=== PATIENT | female | born 1995 | race Asian ===

== ENCOUNTER 2018-11-20 07:33 | Day surgery (SDC) | payer OTHER, SELFPAY ==
[2018-11-20] VITALS (9 sets, daily range): BP systolic 82–103; BP diastolic 50–70; PULSE 63–78; RESP 12–16; TEMP 36.4–36.6; O2SAT 99–100; BMI 22.8
--- NOTE | 2018-11-20 | PATH_ITS ---
[facility] Accession Number: [id number] . 01 Material submitted: . gastrointestinal site - GASTRIC BIOPSIES . 02 Diagnosis: Stomach, Biopsies: Gastric antral and body mucosa with mild chronic gastritis. Negative for Helicobacter organisms by immunohistochemistry. Negative for intestinal metaplasia, dysplasia or malignancy. V/11/22/2018 . 02 Electronically signed: . Harman Ovalle MD, PhD, Pathologist NPI- [id number] . 01 Gross description: . GASTRIC BIOPSIES: Received in formalin are 2 fragment(s) of fox, soft tissue measuring 0.1 x 0.1 x 0.1 cm to 0.2 x 0.1 x 0.1 cm which is entirely submitted and submitted entirely in 1 cassette(s) /DMC /DMC . 02 Microscopic: . An immunohistochemical stain is performed to evaluate for Helicobacter organisms and is negative. A control stain shows appropriate reactivity. . * This test was developed and its performance characteristics determined by [facility]. It has not been cleared or approved by the U.S. Food and Drug Administration. The FDA has determined that such clearance or approval is not necessary. This test is used for clinical purposes. It should not be regarded as investigational or for research. . 02 Pathologist provided ICD-10: K29.70 . 02 CPT . 829018, [id number] Performed at: 01 [facility] [address], [place], [place] [id number] MD Jose Armando Logan MD Phone: [phone] Performed at: 02 [facility] [address] [place], [place] [id number] MD Serena Armas MD Phone: [phone]
[2018-11-20] MEDS: SODIUM CHLORIDE 0.9% 1,000 ML 150 ML IV (09:04)
--- NOTE | 2018-11-20 09:28 | PM.HP.1 ---
History of Present Illness Chief complaint: [id number] COLONOSCOPY/EGD Patient History Social History household members: spouse Smoking Status: Never smoker Family & Social History Social History: household members spouse Tobacco & Substance use: Smoking Status Never smoker Meds Home Medications Medication Instructions Recorded Confirmed Type loratadine 10 mg tablet 10 mg PO DAILY 04/23/18 11/20/18 History sertraline 25 mg tablet 25 mg PO DAILY 05/03/18 11/20/18 History omeprazole magnesium [Prilosec OTC] 20 mg PO DAILY 11/20/18 11/20/18 History Allergies Allergy/AdvReac Type Severity Reaction Status Date / Time No Known Drug Allergies Allergy Verified 11/20/18 08:11 Review of Systems Review of Systems All systems reviewed & are unremarkable except as noted in HPI and below Exam Vital Signs (past 8 hours): - 11/20/18 08:14 Temperature 97.7 F Pulse Rate 78 Respiratory Rate 15 Blood Pressure 98/66 Pulse Oximetry 100 Oxygen Delivery Method Room Air Narrative Exam Narrative: Awake alert oriented x3, pupils equal round reactive to light, lungs clear, heart regular rate and rhythm, abdomen soft nontender nondistended, no lower extremity edema Assessment & Plan Assessment & Plan narrative: Dyspepsia and change in bowel habits, EGD and colonoscopy
--- NOTE | 2018-11-20 09:48 | PM.OP.ENDO ---
Operative Date/Time/Diagnoses Date of procedure: 11/20/18 Procedure & Clinicians Study performed: EGD with biopsy Moderate conscious sedation was administered by the endoscopy nurse and supervised by the endoscopist. The following parameters were monitored: Oxygen saturation, heart rate, blood pressure, and response to care. Sedation: 6 mg midazolam, 100 mcg fentanyl Indications: Dyspepsia Procedure Notes Procedure in detail: Prior to the procedure, history and physical was performed, and patient medications and allergies were reviewed. Preprocedure nursing history and assessment was reviewed. Patient identification and proposed procedure were verified by the physician and nurse in the procedure room. The physical status of the patient was reassessed after the procedure. After informed consent was obtained including risks, benefits, and alternatives, the scope was passed under direct vision. Throughout the procedure, the patient's blood pressure, pulse, and oxygen saturations were monitored continuously. The upper endoscope was introduced through the mouth and advanced to the 2nd portion of the duodenum. Retroflexion was performed in the stomach. The patient tolerated the procedure well. The entire esophagus was normal-appearing. The Z-line was regular and located at 39 cm. The entire examined stomach was normal appearing. Biopsies were taken to exclude H pylori. The entire examined duodenum was normal appearing. Impression: Normal appearing esophagus and Z-line Normal appearing stomach. Biopsied Normal appearing duodenum Complications: other (EBL minimal. No complications) Plan for aftercare: Follow-up pathology results Proceed with colonoscopy today Follow-up in GI clinic as previously scheduled
[2018-11-20] MEDS: MIDAZOLAM 5 MG/5 ML VIAL IV (09:58)
[2018-11-20] MEDS: fentaNYL 250 MCG/5 ML INJ IV (09:59)
--- NOTE | 2018-11-20 10:10 | P.OP.ENDO_ITS ---
Operative Date/Time/Diagnoses Date of procedure: 11/20/18 Procedure & Clinicians Study performed: Colonoscopy - diagnostic Moderate conscious sedation was administered by the endoscopy nurse and supervised by the endoscopist. The following parameters were monitored: Oxygen saturation, heart rate, blood pressure, and response to care. Sedation: 1 mg midazolam. Plus medications given during EGD Indications: Change in bowel habits, constipation Procedure Notes Procedure in detail: Prior to the procedure, history and physical was performed, and patient medications and allergies were reviewed. Preprocedure nursing history and assessment was reviewed. Patient identification and proposed procedure were verified by the physician and nurse in the procedure room. The physical status of the patient was reassessed after the procedure. After informed consent was obtained including risks, benefits, and alternatives, the scope was passed under direct vision. Throughout the procedure, the patient's blood pressure, pulse, and oxygen saturations were monitored continuously. The colonoscope was introduced through the anus and advanced to the cecum as identif ied by the appendiceal orifice and ileocecal valve. The patient tolerated the procedure well. Bowel prep was deemed adequate to detect polyps greater than 5 mm. Perianal and digital rectal examinations were unremarkable. Retroflexion in the rectum was unrevealing. The entire examined colon was normal appearing. The terminal ileum was normal appearing. Impression: Normal colon Normal terminal ileum Sedation minutes: 30 Complications: other (EBL none. No complications) Plan for aftercare: Resume home medications Resume previous diet Follow-up in GI clinic as previously scheduled Discharged home with escort
--- NOTE | 2018-11-20 10:46 | SUR.PHASEII ---
Pt drowsy, family at bedside. Call light within reach. Water provided.
--- NOTE | 2018-11-20 11:10 | SUR.PHASEII ---
Pt's spouse expressed desire to d/c. Pt sat up and c/o feeling lightheaded. Encouraged to rest a while longer. Pt agreed. Call light within reach.
--- NOTE | 2018-11-20 11:22 | SUR.PHASEII ---
Pt sitting up using cellphone. IV d/c'd.
== END 2018-11-20 11:20 | disposition home or self-care (01) ==
PROVIDERS: PCP Nurse Practitioner Gerontology; Visit Provider Internal Medicine
PROC: 0DJ08ZZ Inspection of Upper Intestinal Tract, Via Natural or Artificial Opening Endoscopic (ICD-10-PCS; CPT 43235; principal; 2018-11-20 09:00)
PROC: 0DJD8ZZ Inspection of Lower Intestinal Tract, Via Natural or Artificial Opening Endoscopic (ICD-10-PCS; CPT 45378; 2018-11-20 09:00)
DX: K29.70 Gastritis, unspecified, without bleeding (principal); R19.7 Diarrhea, unspecified; R10.9 Unspecified abdominal pain; K59.00 Constipation, unspecified
CPT/HCPCS: 43239; 45378; J2250; J3010

== ENCOUNTER → 2019-06-26 16:49 | Outpatient (CLI) | payer OTHER, SELFPAY | PROVIDERS: PCP Nurse Practitioner Gerontology; Visit Provider Obstetrics & Gynecology | DX: Z34.02 Encounter for supervision of normal first pregnancy, second trimester (principal); Z3A.17 17 weeks gestation of pregnancy | CPT/HCPCS: 87086 ==

== ENCOUNTER → 2019-06-26 16:58 | Outpatient (CLI) | payer OTHER, SELFPAY ==
[2019-06-26 18:08] LABS: Add Manual Diff / Slide Review NO; Basophils Absolute Auto 0 /uL (0-100); Basophils Percent Auto 0.6 % (0-2); Eosinophils Absolute Auto 100 /uL (0-450); Eosinophils Percent Auto 1.7 % (2-4); Hematocrit 35.8 % (36-46); Hemoglobin 12.1 g/dL (12.0-16.0); Lymphocytes Absolute Auto 1900 /uL (1100-4500); Mean Corpuscular HGB Conc 33.7 % (30-36); Mean Corpuscular Hemoglobin 31.3 PG (26-34); Mean Corpuscular Volume 92.7 fL (80-100); Monocytes Absolute Auto 400 /uL (0-900); Neutrophils Absolute Auto 3500 /uL (1500-7000); Neutrophils Percent Auto 59.7 % (50-75); Platelet Count 215 X10^3/uL (150-400); Red Blood Cell Count 3.86 X10^6/uL (4.0-5.2); Red Cell Distribution Width 13.4 % (11.6-14.8); White Blood Cell Count 5.9 X10^3/uL (4.5-11.0)
[2019-06-26 18:22] LABS: Appearance Urine UA CLEAR; Bilirubin Urine UA NEGATIVE (NEGATIVE); Color Urine UA YELLOW; Glucose Urine UA NEGATIVE (Negative); Ketones Urine UA NEGATIVE (NEGATIVE); Leukocyte Esterase Urine UA NEGATIVE (NEGATIVE); Nitrite Urine UA NEGATIVE (Negative); Occult Blood Urine UA NEGATIVE (Negative); Protein Urine UA NEGATIVE (Negative); Specific Gravity Urine UA <=1.005 (1.000-1.035); Urobilinogen Urine UA 0.2 E.U./dL (0.2)
[2019-06-26 18:24] LABS: pH Urine UA 6.5 (4.5-8.0)
[2019-06-26 19:03] LABS: Hepatitis B Surface Antigen NEGATIVE s/c (NEGATIVE)
[2019-06-26 19:19] LABS: HIV 1 & 2 Ab/Ag 4th Gen Combo NEGATIVE (NEGATIVE); Hep C Virus Ab w/Reflex Quant NEGATIVE s/c (NEGATIVE)
[2019-06-29 20:01] LABS: RPR Screen Nonreactive (Nonreactive)
[2019-07-02 16:35] LABS: AFP, Serum 62.4 ng/mL; Calc Gestational Age 17; Est Date Determined by ULTRASOUND; Maternal Weight 129 lbs; Number of Fetuses 1; Prev Pregnancies Down Syndrome NO
== END ==
PROVIDERS: Family Provider Nurse Practitioner Gerontology; PCP Nurse Practitioner Gerontology; Visit Provider Obstetrics & Gynecology
DX: Z34.02 Encounter for supervision of normal first pregnancy, second trimester (principal); Z3A.17 17 weeks gestation of pregnancy
CPT/HCPCS: 36415; 80055; 81003; 82105; 86787; 86803; 86850; 86900; 86901; 87086; 87389

== ENCOUNTER → 2019-07-23 16:11 | Outpatient (CLI) | payer OTHER, SELFPAY | PROVIDERS: Family Provider Nurse Practitioner Gerontology; PCP Nurse Practitioner Gerontology; Visit Provider Specialist | DX: B08.4 Enteroviral vesicular stomatitis with exanthem (principal) | CPT/HCPCS: 36415 ==

== ENCOUNTER → 2019-08-27 08:24 | Outpatient (CLI) | payer OTHER, SELFPAY ==
[2019-08-27 10:15] LABS: Hematocrit 35.9 % (36-46); Hemoglobin 12.2 g/dL (12.0-16.0)
[2019-08-27 10:35] LABS: GTT (PREG) 1 Hour PP 50gm Dose 110 mg/dL (76-139)
== END ==
PROVIDERS: Family Provider Nurse Practitioner Gerontology; PCP Nurse Practitioner Gerontology; Referring Provider Specialist; Visit Provider Specialist
DX: Z34.02 Encounter for supervision of normal first pregnancy, second trimester (principal)
CPT/HCPCS: 36415; 82950; 85014; 85018

== ENCOUNTER → 2019-11-12 11:28 | Outpatient (CLI) | payer OTHER, SELFPAY ==
[2019-11-13 10:53] LABS: Strep Grp B PCR NEG for Grp B Strep
== END ==
PROVIDERS: Family Provider Nurse Practitioner Gerontology; PCP Nurse Practitioner Gerontology; Visit Provider Specialist
DX: Z34.03 Encounter for supervision of normal first pregnancy, third trimester (principal)
CPT/HCPCS: 87653

== ENCOUNTER 2019-12-03 04:39 | Inpatient (IN) | payer OTHER, SELFPAY ==
[2019-12-03] MEDS: LACTATED RINGERS 1,000 ML 100 ML IV (08:19)
--- NOTE | 2019-12-03 08:31 | PM.OBHP.1 ---
OB HPI Date/Time Date of admission: 12/03/19 Date Patient Seen: 12/03/19 Time Patient Seen: 08:00 History of Present Condition Chief complaint: Evaluation of Labor : 1 Para: 0 Estimated Date of Delivery: 12/04/19 Estimated Gestational Age (weeks): 39 Narrative: Dara Waddell is a 24 year old female admitted in active labor History of Present care: good care, initiated at week # (9), number of visits (9) and pounds weight gain (25) Dating criteria: based on 1st trimester US only Ultrasounds: normal mid trimester US Obstetrical complications: none Medical complications: none Preadmission Labs Blood type: B (+) positive -: Antibody screen: negative, GBS status: negative, HBsAG: negative, HIV: negative and RPR/VDLR: negative -: Chlamydia screen: not detected and Gonorrhea screen: not detected -: Rubella: immune and Varicella: immune HCAB: negative Cell-free DNA: Normal male 1 hr GTT: 110 Evaluation Evaluation Baseline heart rate: 140 Variability: Moderate (11-25) monitor accelerations: Present monitor decelerations: Absent Contraction Frequency (minutes): 4 Uterine Contraction Intensity: Strong/Firm Category of Tracing: I Cervical dilation (cm): 4 Cervical effacement (%): 100 station: 0 PFSH Medical History (Updated 05/06/19 @ 15:28 by Susan Travis RN) Abnormal Pap smear of cervix (Acute) Anxiety (Acute) Asthma (Acute) Depression (Acute) Seasonal allergies (Acute) Family History (Updated 05/06/19 @ 15:32 by Susan Travis RN) Mother Hypertension UTI (urinary tract infection) Grandmother Hypertension Grandfather Hypertension Family/Other Cancer Social History marital status: household members: spouse education level: college (14 years ) occupational status: employed ([employer] ) current occupational exposures/hazards: No leisure activities: exercise Smoking Status: Never smoker substance use type: does not use Type(s) of exercise: walking frequency: 1-2 times per week Meds Home Medications and Allergies Home Medications Medication Instructions Recorded Confirmed Type prenat.vits,ioana,hdl-xcvs-cxjiw 1 tab PO DAILY 05/05/19 11/28/19 History docusate calcium PO 05/06/19 11/28/19 History doxylamine succinate 25 mg tablet 25 mg PO BEDTIME PRN 05/22/19 11/28/19 History pyridoxine (vitamin B6) 25 mg 25 mg PO DAILY 05/22/19 11/28/19 History tablet sertraline 25 mg tablet 25 mg PO DAILY #90 tab 09/08/19 11/28/19 Rx Double Electric breast Pump and #1 each 11/26/19 11/28/19 Rx Supplies Allergies Allergy/AdvReac Type Severity Reaction Status Date / Time sulfamethoxazole Allergy Hives Verified 10/29/19 10:35 [From Bactrim] trimethoprim [From Bactrim] Allergy Hives Verified 10/29/19 10:35 Review of Systems Review of Systems Narrative: Patient denies headaches, scotomata, epigastric pain. She has had good movement. No leakage of fluid. Regular painful contractions ROS: Yes All systems reviewed with the patient and are negative except as otherwise documented Exam Vital Signs (past 8 hours): Blood pressure 104/65, pulse of 82, temperature 36.4? Narrative Exam Narrative: HEENT exam within normal limits. Lungs are clear to auscultation percussion. Heart is regular rate and rhythm no S3-S4 or murmurs. Fetus is vertex. Extremities without edema and nontender. Assessment and Plan Assessment and Plan Assessment and Plan narrative: Term in early labor. Anticipate vaginal delivery.
[2019-12-03 08:55] LABS: Add Manual Diff / Slide Review NO; Basophils Absolute Auto 0 /uL (0-100); Basophils Percent Auto 0.3 % (0-2); Eosinophils Absolute Auto 100 /uL (0-450); Hematocrit 35.6 % (36-46); Lymphocytes Absolute Auto 2300 /uL (1100-4500); Lymphocytes Percent Auto 22.9 % (25-40); Mean Corpuscular HGB Conc 33.6 % (30-36); Mean Corpuscular Volume 89.4 fL (80-100); Monocytes Absolute Auto 800 /uL (0-900); Neutrophils Absolute Auto 6800 /uL (1500-7000); Neutrophils Percent Auto 67.8 % (50-75); Platelet Count 215 X10^3/uL (150-400); Red Blood Cell Count 3.98 X10^6/uL (4.0-5.2); Red Cell Distribution Width 13.7 % (11.6-14.8)
[2019-12-03 10:14] VITALS: BP 108/75
[2019-12-03 11:41] LABS: COVID19 -Nasal RAPID Negative (Negative)
[2019-12-03] MEDS: FENT 2MCG/ML BUPIV 0.125% EPI 200 MCG/100 ML PLAST..BAG 6 MCG EPIDURAL (11:50)
--- NOTE | 2019-12-03 12:02 | PM.AN.REGBLK ---
Regional Block Pre-procedure Procedure: Continuous Lumbar Epidural for L&D Attending OB provider: Jayda Martinez PMH/ROS narrative: term labor, no complications. PMH: exercise induced asthma as a youth. No Rx. Depression/anxiety well controlled with sertraline. Hx: No personal or family history of anesthesia problems. ASA Class: II Labs: Hct 35.6 % (36-46) L 12/03/19 07:58 Plt Count 215 X10^3/uL (150-400) 12/03/19 07:58 Medications: Current Medications Generic Name Dose Route Start Last Admin Trade Name Freq PRN Reason Stop Dose Admin Calcium Carbonate 1,000 mg 12/03/19 07:42 Tums PO Q2HR PRN Dyspepsia Diphenhydramine HCl 25 mg 12/03/19 11:33 Benadryl IV Q10M PRN Pruritis Fentanyl 100 mcg 12/03/19 07:42 Sublimaze IV Q1H PRN Pain, Severe (7-10) Lactated Ringer's 1,000 mls @ 100 mls/hr 12/03/19 07:45 12/03/19 08:19 Lactated Ringers IV 100 mls/hr CONT REDD Administration FENT 2MCG/ML BUPIV 0.125% EPI 200 mcg in 100 mls @ 6 mls/hr 12/03/19 11:45 Fentanyl/Bupiv/Ns 2mcg/Ml - 0.125% EPIDURAL CONT REDD Naloxone HCl 0.2 mg 12/03/19 07:42 Narcan IV Q2MIN PRN Opiate Reversal Ondansetron HCl 4 mg 12/03/19 07:42 Zofran IV Q4HR PRN Nausea And Vomiting Allergies: Allergies Allergy/AdvReac Type Severity Reaction Status Date / Time sulfamethoxazole Allergy Hives Verified 10/29/19 10:35 [From Bactrim] trimethoprim [From Bactrim] Allergy Hives Verified 10/29/19 10:35 Procedure Insertion date: 12/03/19 Insertion time: 11:47 Prep/Local: betadine x3 Patient position: sitting Needle: 18 gauge Hustead (27g Pencan through Hustead for CSE, 0.5mL 0.25% bupiv spinal dose) Loss of resistance with: saline JAYCOB at (cm): 4 Catheter placed at SKIN (cm): 9 Catheter in SPACE (cm): 5 Insertion: No CSF, No Blood, No Paresthesia with insertion, No Paresthesia with injection and No Test dose reaction Initial Medications TEST DOSE time: 11:48 TEST DOSE: 1.5% lidocaine with epinephrine 1:200k (mL): 3 BOLUS DOSE time: 11:59 BOLUS DOSE (mL): 3 BOLUS DOSE med: 0.125% bupivacaine with fentanyl 10 mcg/mL Infusion INFUSION: 0.125% bupivacaine and with fentanyl 2 mcg/mL Initial rate (mL/hr): 6 Post-procedure Anesthesia time START: 11:36 Anesthesia time END: 19:37 Post-procedure Anesthesia Assessment: Yes CV function: HR/BP stable, Yes Resp function: RR/sat/airway adequate, Yes Post-op hydration adequate, Yes Pain control adequate, Yes Nausea & vomiting absent, Yes Mental status appropriate and No Anesthesia complications
[2019-12-03] MEDS: OXYTOCIN PREMIX 30 UNIT/500 ML PLAST..BAG IV (13:32)
[2019-12-03] MEDS: ONDANSETRON 4 MG/2 ML INJ IV (17:03)
--- NOTE | 2019-12-03 20:13 | PM.OBPRVD ---
Labor & Delivery Delivery date: 12/03/19 Intrapartal events: None Delivery augmentation: pitocin Delivery monitor: external FHT and external uterine L&D Laceration Description: Periurethral - 1st Degree and Perineal - 2nd Degree Delivery repair: chromic (3 0 and 4 0) Estimated blood loss (mL): 450 Anesthesia type: Epidural Narrative: Patient arrived on Labor and delivery in active labor. She received an epidural catheter for pain control. heart tones category 1 to category 2 throughout labor. Patient delivered spontaneously, over an intact perineum. The viable male infant was placed on maternal abdomen. After the cord stopped pulsating the cord was clamped, cut, and cord bloods obtained. There were no cervical tears. A second-degree perineal tear was repaired with 3 0 chromic suture in the usual 2 layer fashion. Labial minora tears were repaired bilaterally. Estimated blood loss 450 cc. Baby and mother doing well. Baby 1: Infant gender: Male Presentation: vertex position: Right Occiput Posterior Placenta delivery description: Spontaneous cord vessel description: 3 Vessels score (1 min): 8 score (5 min): 9 Plan for aftercare: Routine care
[2019-12-03] MEDS: IBUPROFEN 600 MG TABLET PO (21:00)
[2019-12-04] MEDS: IBUPROFEN 600 MG TABLET PO ×3 (02:50→15:45)
[2019-12-04] MEDS: DERMOPLAST SPRAY 20% 60 ML 1 SPRAY TOP (08:09)
[2019-12-04] MEDS: DOCUSATE 100 MG CAPSULE PO (08:10)
[2019-12-04 08:11] LABS: Hematocrit 29.4 % (36-46); Hemoglobin 9.9 g/dL (12.0-16.0)
[2019-12-04] MEDS: SERTRALINE 25 MG TABLET PO (09:09)
--- NOTE | 2019-12-04 10:26 | PM.OBDS.1 ---
Discharge Providers Provider Date of admission: 12/03/19 04:39 Discharge Date: 12/04/19 Primary care physician: JOHN Smith Consults: 12/03/19 07:42 Consult to Anesthesiology Urgent Comment: Consulting Provider: Anesthesiologist Reason for consultation: Epidural Has provider been notified: No 12/04/19 20:11 Consult to Quality Assurance Director Routine Comment: Discharge provider: Jayda Martinez MD Summary Hospital Course Date Patient Seen: 12/04/19 Time Patient Seen: 10:27 Procedures: Epidural catheter, spontaneous vaginal delivery, repair of second-degree tear Hospital Course: Patient arrived in Labor and delivery in active labor. She received an epidural catheter for pain control. She had Pitocin augmentation of labor. She had a spontaneous vaginal delivery with repair of a second-degree tear. She denies any headaches, scotomata, epigastric pain. She is urinating and ambulating well. Pain is under control. Peripartum Data Delivery Method: Natural Vaginal Laceration description: Perineal - 2nd Degree Procedures: Epidural catheter, Pitocin augmentation of labor, spontaneous vaginal delivery, repair of second-degree tear complications: none 1: Gender: Male Disposition of : home Discharge Diagnosis (1) Vaginal delivery: Status: Acute Status at Discharge Cognitive/behavioral status at discharge: oriented Functional status at discharge: independent ambulation Overall status at discharge: patient is progressing back to baseline Time Spent with Patient Time attestation: Total time spent providing and/or coordinating discharge services: Time spent: Less than 30 minutes Objective Labs Result Diagrams: 12/04/19 08:06 Labs: Laboratory Results - last 24 hr 12/03/19 12/04/19 07:45 08:06 Hgb 9.9 L Hct 29.4 L COVID-19 PCR Negative Exam Vital Signs (past 8 hours): Blood pressure 104/70, pulse of 90, temperature 98? Narrative Exam Narrative: Abdomen is soft, nontender. Uterus is firm, U -1, nontender. Mild lochia. Repair intact. Extremities without edema and nontender. Patient's blood type is B positive, she is rubella immune, she received the Tdap in the 3rd trimester. Discharge Plan Discharge Plan Patient Disposition: Home Discharge orders & Medications Prescriptions: Continued sertraline 25 mg tablet 25 mg PO DAILY Qty: 90 RF: 3 (DME) Double Electric breast Pump and Supplies See Rx Instructions .ROUTE .MEDSUPPLY Qty: 1 RF: 0 pyridoxine (vitamin B6) 25 mg tablet 25 mg PO DAILY RF: 0 Follow up/Referrals: Jayda Martinez MD [Physician] - 1 Month Serena Andujar ARNP [Primary Care Provider] - Diet/Activity/Treatments Diet: Regular Activity: Nothing in vagina for 4 weeks Skin/Wound/Dressing Care Report to your healthcare provider any signs of infection, such as:: chills, fever and increased pain Discharge Data Primary Care Provider: Serena Andujar Attending Provider: Jayda Martinez Admit Date/Time: 12/03/19 04:39
[2019-12-04] MEDS: LANOLIN OINT 7 GM 1 APPLIC TOP (13:38)
== END 2019-12-04 22:00 | disposition home or self-care (01) | DRG 807 ==
PROVIDERS: Admitting Provider Specialist; Family Provider Nurse Practitioner Gerontology; PCP Nurse Practitioner Gerontology; Referring Provider Specialist; Visit Provider Specialist
DX: O70.1 Second degree perineal laceration during delivery (principal); Z37.0 Single live birth; Z3A.39 39 weeks gestation of pregnancy
CPT/HCPCS: 01967; 36415; 59050; 59400; 85014; 85018; 85025; 86850; 86900; 86901; 87635; G0379; J2405; J2590

== ENCOUNTER 2021-02-13 13:06 | Emergency (ER) | payer OTHER, SELFPAY ==
[2021-02-13 13:12] VITALS: BP 119/75; PULSE 66; RESP 14; TEMP 36.1; O2SAT 99
[2021-02-13 13:38] LABS: COVID19 -Nasal RAPID Negative (Negative)
[2021-02-13 15:24] LABS: Add Manual Diff / Slide Review NO; Basophils Absolute Auto 0 /uL (0-100); Basophils Percent Auto 0.6 % (0-2); Eosinophils Absolute Auto 100 /uL (0-450); Eosinophils Percent Auto 2.5 % (2-4); Hematocrit 41.8 % (36-46); Hemoglobin 13.8 g/dL (12.0-16.0); Lymphocytes Absolute Auto 2100 /uL (1100-4500); Lymphocytes Percent Auto 43.6 % (25-40); Mean Corpuscular Hemoglobin 30.2 PG (26-34); Mean Corpuscular Volume 91.6 fL (80-100); Monocytes Absolute Auto 300 /uL (0-900); Monocytes Percent Auto 7.1 % (3-14); Neutrophils Absolute Auto 2200 /uL (1500-7000); Neutrophils Percent Auto 46.2 % (50-75); Platelet Count 216 X10^3/uL (150-400); Red Blood Cell Count 4.56 X10^6/uL (4.0-5.2); Red Cell Distribution Width 13.3 % (11.6-14.8); White Blood Cell Count 4.8 X10^3/uL (4.5-11.0)
[2021-02-13] MEDS: ONDANSETRON 4 MG/2 ML INJ IV (15:31)
[2021-02-13] MEDS: SODIUM CHLORIDE 0.9% 1,000 ML 1000 ML IV (15:31)
[2021-02-13 15:33] LABS: Alanine Aminotransferase 20 IU/L (<35); Albumin 4.2 g/dL (3.5-5.0); Albumin Globulin Ratio 1.2 (1.0-2.8); Alkaline Phosphatase 68 U/L (38-126); Aspartate Aminotransferase 29 IU/L (14-36); BUN Creatinine Ratio 14.6 (6-22); Bilirubin Total 0.3 mg/dL (0.2-1.3); Blood Urea Nitrogen 13 mg/dL (7-17); Calcium 9.5 mg/dL (8.4-10.2); Carbon Dioxide 29 mmol/L (22-32); Chloride 105 mmol/L (98-107); Estimated Glomerular Filt Rate > 60.0 mL/min (>60); Globulin 3.5 g/dL (1.7-4.1); Glucose 97 mg/dL (70-100); HEMOLYSIS 16 (0-50); Lipase 299 U/L (23-300); Potassium 3.8 mmol/L (3.4-5.1); Sodium 140 mmol/L (137-145); Total Protein 7.7 g/dL (6.3-8.2)
--- NOTE | 2021-02-13 15:38 | ED_ITS ---
HPI - Nausea/Vomiting/Diarrhea General Chief complaint: Nausea/Vomiting/Diarrhea Stated complaint: Can't eat. N/V/D, headache for 2 weeks Time Seen by Provider: 02/13/21 15:38 Source: patient Mode of arrival: Ambulatory Limitations: no limitations History of Present Illness HPI Narrative: This is a 25-year-old female comes with complaint of several days of nausea, diarrhea with 2 or 3 episodes of loose stool daily, muscle aches for the last several days and developing some headache today. Patient denies any fevers or chills. No cold cough or congestion that she is appreciated no chest pain or shortness of breath. She denies any abdominal pain. She has had some low back discomfort. She denies any dysuria, urgency or frequency. No vaginal bleeding or discharge. She has not any black or bloody stools but has had loose stools 2 or 3 times daily. Patient denies any rashes or skin changes. No known infectious contacts. She takes sertraline daily. She is allergic to Bactrim but denies any prior surgeries. No tobacco, rare alcohol, no illicit. Related Data Home Medications Medication Instructions Recorded Confirmed cetirizine 10 mg tablet (Zyrtec) 10 mg PO BEDTIME 02/13/21 02/13/21 sertraline 25 mg tablet 25 mg PO BEDTIME 02/13/21 02/13/21 Previous Rx's Medication Instructions Recorded cephalexin 500 mg capsule 500 mg PO BID #6 cap 02/13/21 ondansetron HCl 4 mg tablet 4 mg PO Q6H PRN #5 tab 02/13/21 (Zofran) Allergies Allergy/AdvReac Type Severity Reaction Status Date / Time sulfamethoxazole Allergy Hives Verified 02/13/21 17:25 [From Bactrim] trimethoprim [From Bactrim] Allergy Hives Verified 02/13/21 17:25 Review of Systems Review of Systems ROS Unobtainable: All systems reviewed & are unremarkable except as noted in HPI and below Patient History Medical History Abnormal Pap smear of cervix Anxiety Asthma Depression Seasonal allergies Family History (Updated 05/06/19 @ 15:32 by Susan Travis RN) Mother Hypertension UTI (urinary tract infection) Grandmother Hypertension Grandfather Hypertension Family/Other Cancer Social History marital status: household members: spouse education level: college (14 years ) occupational status: employed ([employer] ) current occupational exposures/hazards: No leisure activities: exercise Smoking Status: Never smoker substance use type: does not use Type(s) of exercise: walking frequency: 1-2 times per week Smoking Status: Never smoker alcohol intake frequency: 0-2 drinks per day Substance Use Type: does not use Exam Narrative Exam Narrative: GEN: well nourished, well appearing female, alert and oriented x 3, patient appears to be in mild distress. HEENT: Atraumatic, pupils are equal round reactive to light, no photophobia, extraocular movements are intact, nares are clear, TMs are clear with no fluid. Throat is clear without any exudates, erythema, tonsillar enlargement or uvular deviation, no meningeal signs. HEART: Regular rate and rhythm without murmur, clicks, rubs. Pulses are equal in upper and lower extremities LUNGS:Lungs clear to auscultation, no wheezes, rales, crackles, chest moves symmetrically ABD:bowel sounds normal, soft, non-tender, no guarding, rebound, rigidity, no masses noted, no hepatosplenomegaly :No CVA tenderness MSCL: Non-tender, no muscle atrophy, muscles strength 5/5 upper and lower extremities, full range of motion, normal gait NEURO:CN 2-12 intact, sensation normal SKIN: No rash, erythema or skin changes. Initial Vital Signs Initial Vital Signs: Vital Signs Temperature 97.0 F L 02/13/21 13:12 Pulse Rate 66 02/13/21 13:12 Respiratory Rate 14 02/13/21 13:12 Blood Pressure 119/75 02/13/21 13:12 Pulse Oximetry 99 02/13/21 13:12 Course Orders Ordered: ED Orders 02/13/21 13:20 COVID19 -Nasal swab/Pre-Proc Stat 02/13/21 15:15 Complete Blood Count AUTO DIFF Stat Comprehensive Metabolic Panel Stat Lipase Stat 02/13/21 16:29 Urinalysis and Microscopic Stat Discontinued Medications Cephalexin HCl (Cephalexin 250 Mg Capsule) 500 mg PO NOW ONE Stop: 02/13/21 17:04 Last Admin: 02/13/21 17:25 Dose: 500 mg Documented by: ANGIE Sodium Chloride (Normal Saline 0.9%) 1,000 mls @ 1,000 mls/hr IV BOLUS ONE Stop: 02/13/21 15:54 Last Infusion: 02/13/21 16:21 Dose: 0 mls/hr Documented by: Admin: 02/13/21 15:31 Dose: 1,000 mls/hr Documented by: BLAS Ketorolac Tromethamine (Ketorolac 30 Mg/Ml Vial) 15 mg IV NOW ONE Stop: 02/13/21 16:04 Last Admin: 02/13/21 16:27 Dose: 15 mg Documented by: ANGIE Ondansetron HCl (Ondansetron 4 Mg/2 Ml Inj) 4 mg IV NOW ONE Stop: 02/13/21 14:55 Last Admin: 02/13/21 15:31 Dose: 4 mg Documented by: BLAS Vital Signs Vital signs: Vital Signs - 8 hr 02/13/21 13:12 02/13/21 17:58 Temperature 97.0 F L Pulse Rate 66 62 Respiratory Rate 14 16 Blood Pressure 119/75 118/68 Pulse Oximetry 99 97 MDM - Nausea/Vomiting/Diarrhea Lab Data Result diagrams: 02/13/21 15:15 02/13/21 15:15 Labs: Lab Results 02/13/21 02/13/21 02/13/21 Range/Units 13:20 15:15 15:15 WBC 4.8 (4.5-11.0) X10^3/uL RBC 4.56 (4.0-5.2) X10^6/uL Hgb 13.8 (12.0-16.0) g/dL Hct 41.8 (36-46) % MCV 91.6 (80-100) fL MCH 30.2 (26-34) PG MCHC 33.0 (30-36) % RDW 13.3 (11.6-14.8) % Plt Count 216 (150-400) X10^3/uL Neut % (Auto) 46.2 L (50-75) % Lymph % (Auto) 43.6 H (25-40) % [place] % (Auto) 7.1 (3-14) % Eos % (Auto) 2.5 (2-4) % Baso % (Auto) 0.6 (0-2) % Neut # (Auto) 2200 (0561-2632) /uL Lymph # (Auto) 2100 (8767-1024) /uL [place] # (Auto) 300 (0-900) /uL Eos # (Auto) 100 (0-450) /uL Baso # (Auto) 0 (0-100) /uL Sodium 140 (137-145) mmol/L Potassium 3.8 (3.4-5.1) mmol/L Chloride 105 (98-107) mmol/L Carbon Dioxide 29 (22-32) mmol/L BUN 13 (7-17) mg/dL Creatinine 0.89 (0.52-1.04) mg/dL Estimated GFR > 60.0 (>60) mL/min BUN/Creatinine Ratio 14.6 (6-22) Glucose 97 (70-100) mg/dL Calcium 9.5 (8.4-10.2) mg/dL Total Bilirubin 0.3 (0.2-1.3) mg/dL AST 29 (14-36) IU/L ALT 20 (<35) IU/L Alkaline Phosphatase 68 (38-126) U/L Total Protein 7.7 (6.3-8.2) g/dL Albumin 4.2 (3.5-5.0) g/dL Globulin 3.5 (1.7-4.1) g/dL Albumin/Globulin Ratio 1.2 (1.0-2.8) Lipase 299 (23-300) U/L Urine Color Urine Appearance Urine pH (4.5-8.0) Ur Specific [place] (1.000-1.035) Urine Protein (Negative) Urine Glucose (UA) (Negative) g/dL Urine Ketones (NEGATIVE) Urine Occult Blood (Negative) Urine Nitrate (Negative) Urine Bilirubin (NEGATIVE) Urine Urobilinogen (0.2) E.U./dL Ur Leukocyte Esterase (NEGATIVE) Urine RBC (0-5/HPF) Urine WBC (0-5/HPF) Ur Squamous Epith Cells (0-5/HPF) Urine Bacteria (None) Ur Culture Indicated? SARS-CoV-2 (PCR) Negative (Negative) 02/13/21 Range/Units 16:29 WBC (4.5-11.0) X10^3/uL RBC (4.0-5.2) X10^6/uL Hgb (12.0-16.0) g/dL Hct (36-46) % MCV (80-100) fL MCH (26-34) PG MCHC (30-36) % RDW (11.6-14.8) % Plt Count (150-400) X10^3/uL Neut % (Auto) (50-75) % Lymph % (Auto) (25-40) % [place] % (Auto) (3-14) % Eos % (Auto) (2-4) % Baso % (Auto) (0-2) % Neut # (Auto) (8682-1993) /uL Lymph # (Auto) (1725-0776) /uL [place] # (Auto) (0-900) /uL Eos # (Auto) (0-450) /uL Baso # (Auto) (0-100) /uL Sodium (137-145) mmol/L Potassium (3.4-5.1) mmol/L Chloride (98-107) mmol/L Carbon Dioxide (22-32) mmol/L BUN (7-17) mg/dL Creatinine (0.52-1.04) mg/dL Estimated GFR (>60) mL/min BUN/Creatinine Ratio (6-22) Glucose (70-100) mg/dL Calcium (8.4-10.2) mg/dL Total Bilirubin (0.2-1.3) mg/dL AST (14-36) IU/L ALT (<35) IU/L Alkaline Phosphatase (38-126) U/L Total Protein (6.3-8.2) g/dL Albumin (3.5-5.0) g/dL Globulin (1.7-4.1) g/dL Albumin/Globulin Ratio (1.0-2.8) Lipase (23-300) U/L Urine Color Yellow Urine Appearance Clear Urine pH 7.0 (4.5-8.0) Ur Specific [place] 1.010 (1.000-1.035) Urine Protein Negative (Negative) Urine Glucose (UA) Negative (Negative) g/dL Urine Ketones Negative (NEGATIVE) Urine Occult Blood Negative (Negative) Urine Nitrate Negative (Negative) Urine Bilirubin Negative (NEGATIVE) Urine Urobilinogen 0.2 (0.2) E.U./dL Ur Leukocyte Esterase Trace H (NEGATIVE) Urine RBC None seen (0-5/HPF) Urine WBC 0-1/hpf (0-5/HPF) Ur Squamous Epith Cells 1-5 /hpf (0-5/HPF) Urine Bacteria None seen (None) Ur Culture Indicated? Cult not indicated SARS-CoV-2 (PCR) (Negative) Point of Care Testing Test Results Negative MDM Narrative Medical decision making narrative: This is a 25-year-old female comes with complaint of nausea and vomiting and some mild diarrhea for the past week with the headache for the last day or 2. Patient is COVID negative. She does not have any other clear symptoms. Urine is suspicious for possible infection. Urine cultures pending but patient was started on oral antibiotic. She is tolerating orals here in the department. Vitals and labs are reassuring. Patient feels comfortable with this plan. Strict return precautions discussed. Discharge Plan Departure Patient Disposition: Home Clinical Impression: UTI (urinary tract infection) Instructions: DI for Urinary Tract Infection (UTI) Activity Restrictions/Additional Instructions: Follow-up with your physician for recheck. Your labs today are reassuring, your COVID swab is negative. Your urinalysis is suspicious for infection. This has been sent for culture but I would start antibiotics today. Prescription was sent to Please return for fevers, if you are having more friendly worsening symptoms, back or flank pain, persistent vomiting, lightheadedness or passing out, difficulty with urination or other new or concerning symptoms. Prescriptions: New cephalexin 500 mg capsule 500 mg PO BID Qty: 6 RF: 0 ondansetron HCl [Zofran] 4 mg tablet 4 mg PO Q6H PRN (Reason: nausea and vomiting) Qty: 5 RF: 0 No Action cetirizine [Zyrtec] 10 mg Tablet 10 mg PO BEDTIME RF: 0 sertraline 25 mg tablet 25 mg PO BEDTIME RF: 0 Referrals: Serena Andujar ARNP [Primary Care Provider] -
[2021-02-13] MEDS: KETOROLAC 30 MG/ML VIAL 15 MG IV (16:27)
[2021-02-13 16:49] LABS: Bacteria Urine None Seen; RBC Urine None Seen (0-5/HPF)
[2021-02-13 16:52] LABS: Appearance Urine UA CLEAR; Bilirubin Urine UA NEGATIVE (NEGATIVE); Color Urine UA YELLOW; Glucose Urine UA NEGATIVE (Negative); Ketones Urine UA NEGATIVE (NEGATIVE); Leukocyte Esterase Urine UA TRACE (NEGATIVE); Nitrite Urine UA NEGATIVE (Negative); Occult Blood Urine UA NEGATIVE (Negative); Protein Urine UA NEGATIVE (Negative); Urobilinogen Urine UA 0.2 E.U./dL (0.2)
[2021-02-13 17:04] LABS: Squamous Epithelial Cell Urine 1-5 /HPF (0-5/HPF); WBC Urine 0-1/HPF (0-5/HPF)
[2021-02-13 17:05] LABS: Culture Indicated Urine Cult Not Indicated
[2021-02-13] MEDS: cephALEXin 250 MG CAPSULE 500 MG PO (17:25)
[2021-02-13 17:58] VITALS: BP 118/68; PULSE 62; RESP 16; O2SAT 97
== END 2021-02-13 18:00 | disposition home or self-care (01) ==
PROVIDERS: Emergency Provider Emergency Medicine; Family Provider Nurse Practitioner Gerontology; PCP Nurse Practitioner Gerontology
DX: N39.0 Urinary tract infection, site not specified (principal); R51.9 Headache, unspecified; R11.2 Nausea with vomiting, unspecified; M54.5 Low back pain; Z20.822 Contact with and (suspected) exposure to COVID-19
CPT/HCPCS: 36415; 80053; 81001; 81025; 83690; 85025; 87635; 96361; 96374; 96375; 99284; C9803; J1885; J2405

== ENCOUNTER 2021-05-16 10:14 | Emergency (ER) | payer OTHER, SELFPAY ==
[2021-05-16] VITALS (8 sets, daily range): BP systolic 95–103; BP diastolic 52–61; PULSE 50–75; RESP 16; TEMP 36.4; O2SAT 90–100; BMI 20.5
--- NOTE | 2021-05-16 10:23 | ED.NAVMDI ---
HPI - Nausea/Vomiting/Diarrhea General Chief complaint: Nausea/Vomiting/Diarrhea Stated complaint: 8 weeks ,cannot eat/drink,weakness Time Seen by Provider: 05/16/21 10:21 History of Present Illness HPI Narrative: 25F nonsmoker with noncontributory medical history is a at 8 weeks who presents with significant other and a chief complaint of many weeks of nausea vomiting and generalized weakness. She states that since about the 1 month georgina she has a very difficult time keeping food down. She has a strong appetite but any time she attempts to eat she quickly vomits. She denies any blood in her vomit. She denies any vaginal bleeding, discharge or leakage of fluid. She has become significantly weak and having a hard time making it to work. She often gets dizzy and lightheaded upon standing. She has had no fever or chills. Related Data Home Medications Medication Instructions Recorded Confirmed cetirizine 10 mg tablet (Zyrtec) 10 mg PO BEDTIME 02/13/21 02/13/21 sertraline 25 mg tablet 25 mg PO BEDTIME 02/13/21 02/13/21 prenat.vits,ioana,[id number] 1 tab PO DAILY 05/12/21 05/12/21 Previous Rx's Medication Instructions Recorded ondansetron HCl 4 mg tablet 4 mg PO Q6H PRN #20 tab 05/12/21 (Zofran) metoclopramide HCl 10 mg tablet 10 mg PO Q6H PRN #10 tab 05/16/21 (Reglan) ondansetron 4 mg disintegrating 4 mg PO TID-QID PRN #10 tab 05/16/21 tablet Allergies Allergy/AdvReac Type Severity Reaction Status Date / Time latex Allergy Mild Unknown, Verified 05/12/21 12:29 per testing according to patient. sulfamethoxazole Allergy Mild Hives Verified 05/12/21 12:14 [From Bactrim] trimethoprim [From Bactrim] Allergy Mild Hives Verified 05/12/21 12:14 Review of Systems Review of Systems Narrative: GENERAL: See HPI. HEENT: Denies sinus pain, ear pain, sore throat, difficulty swallowing, dizziness. RESPIRATORY: Denies dyspnea, cough, wheezing, hemoptysis, sputum. CARDIOVASCULAR: Denies chest pain, palpitations, orthopnea, edema, GASTROINTESTINAL: See HPI : Denies dysuria, frequency, incontinence, hematuria, urinary retention. MUSCULOSKELETAL: denies weakness, joint pain, or bony pain SKIN: Denies rash, skin lesions, or other NEUROLOGIC: Denies weakness, headache, numbness, change in speech, confusion, seizures, incoordination. PSYCHIATRIC: No concerning psychosocial issues. 12 point review of systems is negative except for those stated above Patient History Medical History Abnormal Pap smear of cervix Anxiety (~2017) Asthma (~2009) Depression (~2017) Latex sensitivity Normal colonoscopy Seasonal allergies Sinus infection Family History Mother Hypertension UTI (urinary tract infection) Migraines Grandmother Hypertension Grandfather Hypertension Family/Other Breast cancer Father No problems noted. Grandmother Unknown family medical history Grandfather Unknown family medical history Social History marital status: number of children: 1 household members: spouse and children lives independently: Yes caregiver/support person: No pets and animals: No education level: college (AA degree: Business.) occupational status: employed (@ [employer] ) current occupational exposures/hazards: Yes (Bleach/water solution sometimes. ) special andrew needs: No leisure activities: exercise seatbelt use: always do you feel safe at home: Yes Smoking Status: Never smoker second hand exposure: No substance use type: does not use during the past year weight has: remained stable well-balanced diet: rarely or never (Lots of N/V: not eating well lately, too sick. ) daily servings fruits/ve or more times/day (The only thing that will stay down is fruit.) caffeine: No Type(s) of exercise: walking frequency: does not exercise (Feeling poorly lately.) Smoking Status: Never smoker alcohol intake frequency: 0-2 drinks per day Substance Use Type: does not use Exam Narrative Exam Narrative: GENERAL: [25 year old patient appears stated age. Well-developed patient, in mild distress. HEAD: Atraumatic. Normocephalic. EYES: Pupils equal round and reactive. Extraocular motions intact. No scleral icterus. No injection or drainage. ENT: Nose without bleeding, purulent drainage. Throat without erythema, tonsillar hypertrophy or exudate. Airway patent. NECK: Trachea midline. Non tender CARDIOVASCULAR: Regular rate and rhythm without murmurs, gallops, or rubs. RESPIRATORY: Clear to auscultation. Breath sounds equal bilaterally. No wheezes, rales, or rhonchi. GASTROINTESTINAL: Abdomen soft, non-tender, nondistended. EXTREMITIES: No edema or joint tenderness. BACK: Nontender without deformity or crepitance. No flank tenderness. NEURO: AOx3. SKIN: No rash or erythema of visible areas Initial Vital Signs Initial Vital Signs: Vital Signs Temperature 97.6 F 05/16/21 10:21 Pulse Rate 75 05/16/21 10:21 Respiratory Rate 16 05/16/21 10:21 Blood Pressure 103/61 05/16/21 10:21 Pulse Oximetry 97 05/16/21 10:21 Course Orders Ordered: ED Orders 05/16/21 10:30 Complete Blood Count AUTO DIFF Stat Comprehensive Metabolic Panel Stat Discontinued Medications Sodium Chloride (Normal Saline 0.9%) 1,000 mls @ 1,000 mls/hr IV BOLUS ONE Stop: 05/16/21 11:22 Last Infusion: 05/16/21 11:40 Dose: 0 mls/hr Documented by: Admin: 05/16/21 10:30 Dose: 1,000 mls/hr Documented by: KEN Sodium Chloride (Normal Saline 0.9%) 1,000 mls @ 1,000 mls/hr IV BOLUS ONE Stop: 05/16/21 12:41 Last Infusion: 05/16/21 13:05 Dose: 0 mls/hr Documented by: Admin: 05/16/21 11:44 Dose: 1,000 mls/hr Documented by: ANGIE Metoclopramide HCl (Metoclopramide 10 Mg/2 Ml Inj) 10 mg IV NOW ONE Stop: 05/16/21 10:39 Last Admin: 05/16/21 11:44 Dose: 10 mg Documented by: ANGIE Ondansetron HCl (Ondansetron 4 Mg/2 Ml Inj) 4 mg IV NOW ONE Stop: 05/16/21 10:24 Last Admin: 05/16/21 10:30 Dose: 4 mg Documented by: KEN Pantoprazole Sodium (Pantoprazole 40 Mg Vial) 40 mg IV NOW ONE Stop: 05/16/21 10:39 Last Admin: 05/16/21 11:44 Dose: 40 mg Documented by: ANGIE Vital Signs Vital signs: Vital Signs - 8 hr 05/16/21 10:21 05/16/21 10:35 05/16/21 11:00 Temperature 97.6 F Pulse Rate 75 59 L 67 Respiratory Rate 16 Blood Pressure 103/61 102/59 L Pulse Oximetry 97 98 100 05/16/21 11:30 05/16/21 12:00 05/16/21 12:01 Temperature Pulse Rate 60 50 L 53 L Respiratory Rate Blood Pressure 100/56 L 99/52 L Pulse Oximetry 90 L 100 100 05/16/21 12:30 05/16/21 13:00 Temperature Pulse Rate 57 L 63 Respiratory Rate Blood Pressure 95/52 L 100/57 L Pulse Oximetry 100 100 MDM - Nausea/Vomiting/Diarrhea Lab Data Result diagrams: 05/16/21 10:30 05/16/21 10:30 Labs: Lab Results 05/16/21 05/16/21 Range/Units 10:30 10:30 WBC 4.9 (4.5-11.0) X10^3/uL RBC 4.31 (4.0-5.2) X10^6/uL Hgb 13.1 (12.0-16.0) g/dL Hct 38.3 (36-46) % MCV 89.0 (80-100) fL MCH 30.5 (26-34) PG MCHC 34.2 (30-36) % RDW 12.8 (11.6-14.8) % Plt Count 199 (150-400) X10^3/uL Neut % (Auto) 66.7 (50-75) % Lymph % (Auto) 25.8 (25-40) % [place] % (Auto) 5.4 (3-14) % Eos % (Auto) 1.5 L (2-4) % Baso % (Auto) 0.6 (0-2) % Neut # (Auto) 3300 (0552-2609) /uL Lymph # (Auto) 1300 (7434-2007) /uL [place] # (Auto) 300 (0-900) /uL Eos # (Auto) 100 (0-450) /uL Baso # (Auto) 0 (0-100) /uL Sodium 134 L (137-145) mmol/L Potassium 3.5 (3.4-5.1) mmol/L Chloride 101 (98-107) mmol/L Carbon Dioxide 24 (22-32) mmol/L BUN 11 (7-17) mg/dL Creatinine 0.66 (0.52-1.04) mg/dL Estimated GFR > 60.0 (>60) mL/min BUN/Creatinine Ratio 16.7 (6-22) Glucose 137 H (70-100) mg/dL Calcium 9.6 (8.4-10.2) mg/dL Total Bilirubin 0.4 (0.2-1.3) mg/dL AST 28 (14-36) IU/L ALT 20 (<35) IU/L Alkaline Phosphatase 42 (38-126) U/L Total Protein 7.2 (6.3-8.2) g/dL Albumin 4.0 (3.5-5.0) g/dL Globulin 3.2 (1.7-4.1) g/dL Albumin/Globulin Ratio 1.3 (1.0-2.8) MDM Narrative Medical decision making narrative: Patient with very reassuring labs, still feeling nauseated after above-stated therapy but able to keep oral hydration down. Vital signs are reassuring. Return precautions given and questions answered to her apparent satisfaction. Discharge Plan Departure Patient Disposition: Home Clinical Impression: Vomiting affecting Activity Restrictions/Additional Instructions: *You have been diagnosed with [vomiting early in ] *What to do: *Please continue to take your regular medications as directed. [x ] New medication prescriptions sent to your pharmacy: [ [facility]] [ ] New medication written as a paper prescription [ ] No new medications given *Please follow up with your OB provider in 2-3 days, call for an appointment. Let them know you were seen in the Emergency Department and that we ask that you be seen in follow up. We will electronically transmit a record of today's note *Please consider a clear liquid diet for the next 24-48 hours and then a bland diet and advance as tolerated *Return to Emergency Department if you should have any new, worsening or concerning symptoms, such as [fever greater than 101 F, shaking chills, worsening pain, persistent vomiting or other bothersome symptoms] Prescriptions: New ondansetron 4 mg tablet,disintegrating 4 mg PO TID-QID PRN (Reason: nausea and vomiting) Qty: 10 RF: 0 metoclopramide HCl [Reglan] 10 mg tablet 10 mg PO Q6H PRN (Reason: nausea and vomiting) Qty: 10 RF: 0 No Action ondansetron HCl [Zofran] 4 mg tablet 4 mg PO Q6H PRN (Reason: nausea and vomiting) Qty: 20 RF: 2 prenat.vits,ioana,dco-jxog-lufak Tablet 1 tab PO DAILY RF: 0 cetirizine [Zyrtec] 10 mg Tablet 10 mg PO BEDTIME RF: 0 sertraline 25 mg tablet 25 mg PO BEDTIME RF: 0 Referrals: Blayne Larios MD [Primary Care Provider] - Jayda Martinez MD [Physician] -
[2021-05-16] MEDS: SODIUM CHLORIDE 0.9% 1,000 ML 1000 ML IV ×2 (10:30→11:44)
[2021-05-16] MEDS: ONDANSETRON 4 MG/2 ML INJ IV (10:30)
[2021-05-16 10:51] LABS: Add Manual Diff / Slide Review NO; Basophils Absolute Auto 0 /uL (0-100); Basophils Percent Auto 0.6 % (0-2); Eosinophils Absolute Auto 100 /uL (0-450); Eosinophils Percent Auto 1.5 % (2-4); Hematocrit 38.3 % (36-46); Hemoglobin 13.1 g/dL (12.0-16.0); Lymphocytes Absolute Auto 1300 /uL (1100-4500); Lymphocytes Percent Auto 25.8 % (25-40); Mean Corpuscular HGB Conc 34.2 % (30-36); Mean Corpuscular Hemoglobin 30.5 PG (26-34); Monocytes Absolute Auto 300 /uL (0-900); Monocytes Percent Auto 5.4 % (3-14); Neutrophils Absolute Auto 3300 /uL (1500-7000); Neutrophils Percent Auto 66.7 % (50-75); Platelet Count 199 X10^3/uL (150-400); Red Blood Cell Count 4.31 X10^6/uL (4.0-5.2); Red Cell Distribution Width 12.8 % (11.6-14.8); White Blood Cell Count 4.9 X10^3/uL (4.5-11.0)
[2021-05-16 11:09] LABS: Alanine Aminotransferase 20 IU/L (<35); Albumin Globulin Ratio 1.3 (1.0-2.8); Alkaline Phosphatase 42 U/L (38-126); Aspartate Aminotransferase 28 IU/L (14-36); BUN Creatinine Ratio 16.7 (6-22); Bilirubin Total 0.4 mg/dL (0.2-1.3); Blood Urea Nitrogen 11 mg/dL (7-17); Calcium 9.6 mg/dL (8.4-10.2); Carbon Dioxide 24 mmol/L (22-32); Chloride 101 mmol/L (98-107); Estimated Glomerular Filt Rate > 60.0 mL/min (>60); Globulin 3.2 g/dL (1.7-4.1); Glucose 137 mg/dL (70-100); HEMOLYSIS < 15 (0-50); Potassium 3.5 mmol/L (3.4-5.1); Sodium 134 mmol/L (137-145); Total Protein 7.2 g/dL (6.3-8.2)
[2021-05-16] MEDS: PANTOPRAZOLE 40 MG VIAL IV (11:44)
[2021-05-16] MEDS: METOCLOPRAMIDE 10 MG/2 ML INJ IV (11:44)
== END 2021-05-16 13:27 | disposition home or self-care (01) ==
PROVIDERS: Emergency Provider Emergency Medicine; Family Provider Nurse Practitioner Gerontology; PCP Family Medicine
DX: O21.9 Vomiting of pregnancy, unspecified (principal); R53.1 Weakness; Z3A.08 8 weeks gestation of pregnancy
CPT/HCPCS: 36415; 80053; 85025; 96361; 96374; 96375; 99284; C9113; J2405; J2765

== ENCOUNTER → 2021-05-18 11:44 | Outpatient (CLI) | payer OTHER, SELFPAY ==
[2021-05-18 15:57] LABS: Urine N gonorrhoeae NOT DETECTED
[2021-05-18 16:26] LABS: Urine Chlamydia NOT DETECTED
== END ==
PROVIDERS: Family Provider Nurse Practitioner Gerontology; PCP Family Medicine; Visit Provider Specialist
DX: Z34.81 Encounter for supervision of other normal pregnancy, first trimester (principal); Z3A.08 8 weeks gestation of pregnancy
CPT/HCPCS: 87491; 87591

== ENCOUNTER → 2021-05-18 12:11 | Outpatient (CLI) | payer OTHER, SELFPAY ==
[2021-05-18 12:52] LABS: Add Manual Diff / Slide Review NO; Appearance Urine UA SL CLOUDY; Basophils Absolute Auto 0 /uL (0-100); Basophils Percent Auto 0.5 % (0-2); Bilirubin Urine UA NEGATIVE (NEGATIVE); Color Urine UA YELLOW; Eosinophils Absolute Auto 0 /uL (0-450); Eosinophils Percent Auto 0.7 % (2-4); Glucose Urine UA 1+ g/dL (Negative); Hematocrit 37.7 % (36-46); Ketones Urine UA TRACE (NEGATIVE); Leukocyte Esterase Urine UA 2+ (NEGATIVE); Lymphocytes Absolute Auto 1400 /uL (1100-4500); Mean Corpuscular HGB Conc 34.4 % (30-36); Mean Corpuscular Hemoglobin 30.7 PG (26-34); Mean Corpuscular Volume 89.3 fL (80-100); Monocytes Absolute Auto 400 /uL (0-900); Monocytes Percent Auto 7.4 % (3-14); Neutrophils Absolute Auto 3800 /uL (1500-7000); Neutrophils Percent Auto 67.4 % (50-75); Nitrite Urine UA NEGATIVE (Negative); Occult Blood Urine UA 3+ (Negative); Platelet Count 189 X10^3/uL (150-400); Protein Urine UA 1+ (Negative); Red Blood Cell Count 4.23 X10^6/uL (4.0-5.2); Red Cell Distribution Width 12.7 % (11.6-14.8); Urobilinogen Urine UA 0.2 E.U./dL (0.2); White Blood Cell Count 5.7 X10^3/uL (4.5-11.0)
[2021-05-18 12:54] LABS: pH Urine UA 5.5 (4.5-8.0)
[2021-05-18 13:01] LABS: Amorphous Sediment Urine 1+; Bacteria Urine Many (>30); Culture Indicated Urine Specimen Cultured; Mucus Urine 2+ (Negative); RBC Urine 5-10/HPF (0-5/HPF); Squamous Epithelial Cell Urine 5-10 /HPF (0-5/HPF); WBC Urine 10-30/HPF (0-5/HPF)
[2021-05-19 06:40] LABS: RPR Screen Non Reactive (Non Reactive)
[2021-05-19 08:10] LABS: Varicella IgG Antibody 632 index (Immune >165)
[2021-05-19 16:28] LABS: Hepatitis B Surface Antigen NEGATIVE s/c (NEGATIVE)
[2021-05-19 16:48] LABS: HIV 1 & 2 Ab/Ag 4th Gen Combo NEGATIVE (NEGATIVE); Hep C Virus Ab w/Reflex Quant NEGATIVE s/c (NEGATIVE)
[2021-05-28 13:41] LABS: Rubella Antibody IgG 96.9 IU/mL (>15)
== END ==
PROVIDERS: Family Provider Nurse Practitioner Gerontology; PCP Family Medicine; Referring Provider Specialist; Visit Provider Specialist
DX: Z34.81 Encounter for supervision of other normal pregnancy, first trimester (principal); Z3A.08 8 weeks gestation of pregnancy
CPT/HCPCS: 36415; 80055; 81003; 81015; 86787; 86803; 86850; 86900; 86901; 87086; 87389; 87491; 87591

== ENCOUNTER → 2021-06-16 12:32 | Outpatient (CLI) | payer OTHER, SELFPAY | PROVIDERS: PCP Family Medicine; Visit Provider Specialist | DX: Z34.81 Encounter for supervision of other normal pregnancy, first trimester (principal); Z3A.12 12 weeks gestation of pregnancy; R31.9 Hematuria, unspecified | CPT/HCPCS: 87086 ==

== ENCOUNTER → 2021-07-13 12:11 | Outpatient (CLI) | payer OTHER, SELFPAY ==
[2021-07-16 20:22] LABS: AFP, Serum 42.4 ng/mL (.); Inhibin A, Dimeric 202.31 pg/mL (.); Inhibin A, MoM 1.13 (.); Maternal Weight 123 lbs (.); Number of Fetuses No (.); OSBR Risk 1 IN 10000 (.); Results Report (.); Test Results *Screen Negative* (.); hCG, MoM 1.43 (.); hCG, Serum 59034 mIU/mL (.)
== END ==
PROVIDERS: PCP Family Medicine; Referring Provider Obstetrics & Gynecology; Visit Provider Obstetrics & Gynecology
DX: Z34.82 Encounter for supervision of other normal pregnancy, second trimester (principal); Z3A.16 16 weeks gestation of pregnancy
CPT/HCPCS: 36415; 82105; 82677; 84702; 86336

== ENCOUNTER → 2021-08-11 07:58 | Outpatient (CLI) | payer OTHER, SELFPAY ==
--- NOTE | 2021-08-11 08:00 | DI.US.S_ITS ---
PROCEDURE: US OB >= 14 WEEKS FETUS INDICATIONS: anatomy scan OUTSIDE/PRIOR DATING DATA: Last menstrual period (LMP): Unknown. LMP-based estimated date of delivery (ANA): Not applicable. First dating scan (date and location): May 18, 2021. Estimated date of delivery (ANA) from first dating scan: December 18, 2021. The calculations are made using the clinical ultrasound derived ANA of December 18, 2021. TECHNIQUE: Real-time scanning was performed of the fetus, with image documentation and biometric measurements. Endovaginal scanning: Not performed COMPARISON: [facility], , US OB <= 14 WEEKS FETUS, 05/18/2021, 11:59. [facility], , US OB >= 14 WEEKS FETUS, 07/13/2021, 11:46. FINDINGS: General: A single living intrauterine gestation is present. Presentation: Breech. Placenta: Placental position is posterior , without previa. Amniotic fluid index: 8.1 cm, normal range is 5-24 cm. Single deepest vertical pocket is 3.1 cm. heart rate: 169 beats per minute. Maternal cervical canal: 3.1 cm long. Normal lower limit is 2.5 cm. biometrics: Biparietal diameter: 4.5 cm, correlating with 19 weeks and 4 days (2nd percentile) Head circumference: 17.1 cm, correlating with 19 weeks and 5 days (1st percentile). Abdominal circumference: 15.4 cm, correlating with 20 weeks and 4 days Femur length: 3.4 cm, correlating with 20 weeks and 6 days Clinically estimated gestational age: 21 weeks and 4 days Composite gestational age from present scan: 20 weeks and 1 day Estimated weight and percentile: 361 g which correlates with the 7th percentile Anatomic survey: Neuro: Ventricles are non-dilated at less than 10 mm. Cisterna magna is normal at 3-11 mm. Cerebellum is normal in size and morphology. Nuchal skin fold: Normal at less than 6 mm between 14-21 weeks gestational age. Face: Nose and lips, facial profile are normal. Spine: spine not well imaged secondary to positioning. Heart: 4-chambered heart is present, with normal ventricular outflow tracts. Diaphragm: Diaphragm is intact. Stomach: Left-sided stomach is present. Kidneys: No hydronephrosis. Normal is less than 5 mm in 2nd trimester, less than 7 mm in 3rd trimester. Cord: Three-vessel cord is noted. Incidental note of double nuchal cord. Cord Doppler SD ratios measure 3.2 and 4.3. Unremarkable umbilical artery Doppler waveforms. Bladder: Normal in size. Extremities: All 4 extremities identified. IMPRESSION: 1. Single living intrauterine gestation with estimated sonographic gestational age of approximately 20 weeks and 1 day versus approximately 21 weeks and 4 days based off initial dating ultrasound. Estimated weight of 361 g which correlates with the 7th percentile based off gestational age. Of note, the biparietal diameter measures at the 2nd percentile and the head circumference measures at the 1st percentile. Umbilical artery waveforms appear unremarkable with S/D ratios measuring within normal limits for gestational age. 2. 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 3. The spine is not well imaged secondary to lie. Otherwise, unremarkable anatomic screening survey. Follow-up recommended. Findings were reported to KATINA Rodriges at [facility] at 0900 hrs by the name plate stamper. We strive to produce accurate, complete, and clear reports of imaging services. To assist us in improving patient care, this report was composed using standard report templates and voice recognition software. Therefore, it may contain abnormal punctuation, insertions and/or omissions. Occasional wrong-word or sound-alike substitutions may occur. Though we review the report and make efforts to correct it, we do recommend that the report be read carefully in proper context to recognize any text inaccuracies. Dictated by: Noe Ocampo M.D. on 08/11/2021 at 9:45 Approved by: Noe Ocampo M.D. on 08/11/2021 at 10:23
== END ==
PROVIDERS: PCP Family Medicine; Referring Provider Obstetrics & Gynecology; Visit Provider Obstetrics & Gynecology
DX: Z34.82 Encounter for supervision of other normal pregnancy, second trimester (principal); Z3A.20 20 weeks gestation of pregnancy
CPT/HCPCS: 76811

== ENCOUNTER → 2021-09-05 14:46 | Outpatient (CLI) | payer OTHER, SELFPAY ==
--- NOTE | 2021-09-05 14:48 | DI.US.S_ITS ---
PROCEDURE: US OB FOLLOW UP INDICATIONS: SGA OUTSIDE/PRIOR DATING DATA: Last menstrual period (LMP): 03/18/2021 LMP-based estimated date of delivery (ANA): 12/23/2021. First dating scan (date and location): 05/18/2021. Estimated date of delivery (ANA) from first dating scan: 12/18/2021. The calculations are made using the ultrasound ANA of 12/18/2021 TECHNIQUE: Real-time scanning was performed of the fetus, with image documentation and biometric measurements. COMPARISON: [facility], US, US OB >= 14 WEEKS FETUS, 08/11/2021, 8:03. FINDINGS: General: A single living intrauterine gestation is present. Presentation: Vertex. Placenta: Placental position is posterior , without previa. Amniotic fluid index: 7.7 cm, normal range is 5-24 cm. heart rate: 145 beats per minute. Maternal cervical canal: 3.7 cm long. Normal lower limit is 2.5 cm. biometrics: Biparietal diameter: 24 weeks 2 days Head circumference: 24 weeks 3 days Abdominal circumference: 23 weeks 5 days Femur length: 24 weeks 6 days Clinically estimated gestational age: 25 weeks 1 day Composite gestational age from present scan: 24 weeks 2 days Estimated weight and percentile: 673 g; 10 percentile. Other: Not applicable. IMPRESSION: 1. Single living IUP redemonstrated and interval growth is lower limits of normal with estimated weight at the 10th percentile. 2. Amniotic fluid index measuring 7.7 cm which is less than the 5th percentile for gestational age. We strive to produce accurate, complete, and clear reports of imaging services. To assist us in improving patient care, this report was composed using standard report templates and voice recognition software. Therefore, it may contain abnormal punctuation, insertions and/or omissions. Occasional wrong-word or sound-alike substitutions may occur. Though we review the report and make efforts to correct it, we do recommend that the report be read carefully in proper context to recognize any text inaccuracies. Dictated by: Antolin DAWKINS Interpreted: Vu Doherty MD on 09/05/2021 at 15:32 Transcribed by: ABIEL on 09/05/2021 at 15:37 Approved by: Vu Doherty M.D. on 09/05/2021 at 17:21
== END ==
PROVIDERS: PCP Family Medicine; Referring Provider Specialist; Visit Provider Specialist
DX: O36.5920 Maternal care for other known or suspected poor fetal growth, second trimester, not applicable or unspecified (principal); Z3A.24 24 weeks gestation of pregnancy
CPT/HCPCS: 76816

== ENCOUNTER → 2021-09-12 11:04 | Outpatient (CLI) | payer OTHER, SELFPAY ==
[2021-09-12 13:07] LABS: Hematocrit 34.1 % (36-46); Hemoglobin 11.5 g/dL (12.0-16.0)
[2021-09-12 13:50] LABS: GTT (PREG) 1 Hour PP 50gm Dose 118 mg/dL (76-139)
== END ==
PROVIDERS: PCP Family Medicine; Referring Provider Specialist; Visit Provider Specialist
DX: Z34.82 Encounter for supervision of other normal pregnancy, second trimester (principal)
CPT/HCPCS: 36415; 82950; 85014; 85018

== ENCOUNTER 2021-11-11 12:30 | Outpatient (CLI) | payer OTHER, SELFPAY ==
--- NOTE | 2021-11-11 13:34 | P.TNLD_ITS ---
Visit Information Visit Information Date of evaluation: 11/11/21 Primary OB Provider: Jayda Martinez Reason for Evaluation: Yes non-stress test non-stress test reason: other (Vaginal pain) [facility] Medical History (Updated 11/11/21 @ 13:35 by Jayda Martinez MD) Abnormal Pap smear of cervix Anxiety (~2017) Asthma (~2009) Depression (~2017) Latex sensitivity Normal colonoscopy Seasonal allergies Sinus infection Vaginal delivery (~12/03/19) Family History Mother Hypertension UTI (urinary tract infection) Migraines Grandmother Hypertension Grandfather Hypertension Family/Other Breast cancer Father No problems noted. Grandmother Unknown family medical history Grandfather Unknown family medical history Social History marital status: number of children: 1 household members: spouse and children lives independently: Yes caregiver/support person: No pets and animals: No education level: college (AA degree: Business.) occupational status: employed (@ [employer] ) current occupational exposures/hazards: Yes (Bleach/water solution sometimes. ) special andrew needs: No leisure activities: exercise seatbelt use: always do you feel safe at home: Yes Smoking Status: Never smoker second hand exposure: No substance use type: does not use during the past year weight has: remained stable well-balanced diet: rarely or never (Lots of N/V: not eating well lately, too sick. ) daily servings fruits/ve or more times/day (The only thing that will stay down is fruit.) caffeine: No Type(s) of exercise: walking frequency: does not exercise (Feeling poorly lately.) Evaluation Evaluation Baseline heart rate: 130 Variability: Moderate (11-25) monitor accelerations: Present Monitor Decelerations: Absent Contraction Frequency (minutes): 0 Category of Tracing: Reactive Status: Category l Diagnosis, Plan/Disposition Final Diagnosis (1) 34 weeks gestation of : Status: Acute (2) Pelvic pain affecting in third trimester, antepartum: Status: Acute Plan/Disposition Plan: Patient with vaginal pain with no evidence of contractions and reactive nonstress test. Patient reassured is just the baby sitting low and causing pressure. Heat, stay off her feet, Tylenol if needed. OB Disposition: home
== END 2021-11-11 13:35 | disposition home or self-care (01) ==
LOC: OB 11-15 06:36
PROVIDERS: PCP Family Medicine; Referring Provider Specialist; Visit Provider Specialist
DX: O26.893 Other specified pregnancy related conditions, third trimester (principal); R10.2 Pelvic and perineal pain; Z3A.34 34 weeks gestation of pregnancy
CPT/HCPCS: 59025; G0378; G0379

== ENCOUNTER → 2021-11-24 12:45 | Outpatient (CLI) | payer OTHER, SELFPAY ==
[2021-11-25 12:58] LABS: Strep Grp B PCR NEG for Grp B Strep
== END ==
PROVIDERS: PCP Family Medicine; Visit Provider Obstetrics & Gynecology
DX: Z34.83 Encounter for supervision of other normal pregnancy, third trimester (principal); Z3A.36 36 weeks gestation of pregnancy
CPT/HCPCS: 87653

== ENCOUNTER 2021-11-24 13:03 | Outpatient (CLI) | payer OTHER, SELFPAY ==
[2021-11-24 14:13] VITALS: BP 98/62; PULSE 85; RESP 20; TEMP 36.9
== END 2021-11-24 14:05 | disposition home or self-care (01) ==
LOC: LABOR 14:25 → OB 11-25 08:52
PROVIDERS: PCP Family Medicine; Referring Provider Specialist; Visit Provider Specialist
DX: O36.5930 Maternal care for other known or suspected poor fetal growth, third trimester, not applicable or unspecified (principal); Z3A.36 36 weeks gestation of pregnancy; O47.03 False labor before 37 completed weeks of gestation, third trimester; Z34.83 Encounter for supervision of other normal pregnancy, third trimester
CPT/HCPCS: 59025; 87653; G0378; G0379

== ENCOUNTER → 2021-11-28 10:55 | Outpatient (CLI) | payer OTHER, SELFPAY | PROVIDERS: PCP Family Medicine; Referring Provider Obstetrics & Gynecology; Visit Provider Obstetrics & Gynecology | DX: O36.5920 Maternal care for other known or suspected poor fetal growth, second trimester, not applicable or unspecified (principal) ==

== ENCOUNTER 2021-11-28 12:19 | Outpatient (CLI) | payer OTHER, SELFPAY ==
--- NOTE | 2021-11-28 13:01 | PM.OBTRLD ---
Visit Information Visit Information Date of evaluation: 11/28/21 Primary OB Provider: Jayda Martinez Reason for Evaluation: Yes non-stress test non-stress test reason: other (SGA) [facility] Medical History (Updated 11/28/21 @ 13:02 by Jayda Martinez MD) 36 weeks gestation of Abnormal Pap smear of cervix Anxiety (~2017) Asthma (~2009) Depression (~2017) Latex sensitivity Normal colonoscopy Seasonal allergies Sinus infection Vaginal delivery (~12/03/19) Family History Mother Hypertension UTI (urinary tract infection) Migraines Grandmother Hypertension Grandfather Hypertension Family/Other Breast cancer Father No problems noted. Grandmother Unknown family medical history Grandfather Unknown family medical history Social History marital status: number of children: 1 household members: spouse and children lives independently: Yes caregiver/support person: No pets and animals: No education level: college (AA degree: Business.) occupational status: employed (@ [employer] ) current occupational exposures/hazards: Yes (Bleach/water solution sometimes. ) special andrew needs: No leisure activities: exercise seatbelt use: always do you feel safe at home: Yes Smoking Status: Never smoker second hand exposure: No substance use type: does not use during the past year weight has: remained stable well-balanced diet: rarely or never (Lots of N/V: not eating well lately, too sick. ) daily servings fruits/ve or more times/day (The only thing that will stay down is fruit.) caffeine: No Type(s) of exercise: walking frequency: does not exercise (Feeling poorly lately.) Evaluation Evaluation Baseline heart rate: 120 Variability: Moderate (11-25) monitor accelerations: Present Monitor Decelerations: Absent Category of Tracing: Reactive Status: Category l Diagnosis, Plan/Disposition Final Diagnosis (1) Small for gestational age fetus affecting management of mother: Status: Acute (2) 36 weeks gestation of : Status: Acute Plan/Disposition Plan: Patient with normal biophysical profile and good nonstress test for SGA. Twice weekly NSTs. OB Disposition: home
== END 2021-11-28 13:08 | disposition home or self-care (01) ==
LOC: LABOR 13:00 → OB 11-29 06:51
PROVIDERS: PCP Family Medicine; Referring Provider Specialist; Visit Provider Specialist
DX: O36.5930 Maternal care for other known or suspected poor fetal growth, third trimester, not applicable or unspecified (principal); Z3A.36 36 weeks gestation of pregnancy
CPT/HCPCS: 59025; G0378; G0379

== ENCOUNTER 2021-11-30 16:17 | Observation (INO) | payer OTHER, SELFPAY ==
--- NOTE | 2021-11-30 18:01 | PM.OBTRLD ---
Visit Information Visit Information Date of evaluation: 11/30/21 Primary OB Provider: Jayda Martinez Reason for Evaluation: Yes non-stress test non-stress test reason: decreased movement [facility] Medical History (Updated 11/30/21 @ 18:12 by Jayda Martinez MD) 36 weeks gestation of Abnormal Pap smear of cervix Anxiety (~2017) Asthma (~2009) Depression (~2017) Latex sensitivity Normal colonoscopy Seasonal allergies Sinus infection Vaginal delivery (~12/03/19) Family History Mother Hypertension UTI (urinary tract infection) Migraines Grandmother Hypertension Grandfather Hypertension Family/Other Breast cancer Father No problems noted. Grandmother Unknown family medical history Grandfather Unknown family medical history Social History marital status: number of children: 1 household members: spouse and children lives independently: Yes caregiver/support person: No pets and animals: No education level: college (AA degree: Business.) occupational status: employed (@ [employer] ) current occupational exposures/hazards: Yes (Bleach/water solution sometimes. ) special andrew needs: No leisure activities: exercise seatbelt use: always do you feel safe at home: Yes Smoking Status: Never smoker second hand exposure: No substance use type: does not use during the past year weight has: remained stable well-balanced diet: rarely or never (Lots of N/V: not eating well lately, too sick. ) daily servings fruits/ve or more times/day (The only thing that will stay down is fruit.) caffeine: No Type(s) of exercise: walking frequency: does not exercise (Feeling poorly lately.) Evaluation Evaluation Baseline heart rate: 130 Variability: Moderate (11-25) monitor accelerations: Present Monitor Decelerations: Absent Category of Tracing: Reactive Status: Category l Comments: Ultrasound good movement, breathing, tone. Diagnosis, Plan/Disposition Final Diagnosis (1) Decreased movement: Status: Acute (2) 36 weeks gestation of : Status: Acute Plan/Disposition Plan: Patient came in complaining of decreased movement. She has had some light bleeding since vaginal check 2 days ago. No leakage of fluid. After arriving the patient began noticing good movement. Patient is reassured. We will switch her scheduled follow-up nonstress test 2 days from now rather than tomorrow. Her preference is not to come in in 3 days. OB Disposition: home
== END 2021-11-30 18:10 | disposition home or self-care (01) ==
PROVIDERS: Admitting Provider Specialist; PCP Family Medicine; Referring Provider Specialist; Visit Provider Specialist
DX: O36.8130 Decreased fetal movements, third trimester, not applicable or unspecified (principal); O26.853 Spotting complicating pregnancy, third trimester; Z3A.36 36 weeks gestation of pregnancy
CPT/HCPCS: G0378; G0379

== ENCOUNTER 2021-12-02 08:57 | Outpatient (CLI) | payer OTHER, SELFPAY ==
--- NOTE | 2021-12-02 09:19 | DI.US.S_ITS ---
PROCEDURE: US OB BIOPHYSICAL PROFILE INDICATIONS: SGA OUTSIDE/PRIOR DATING DATA: Last menstrual period (LMP): March 18, 2021. LMP-based estimated date of delivery (ANA): December 23, 2021. First dating scan (date and location): Jayda Martinez, May 18, 2021. Estimated date of delivery (ANA) from first dating scan: December 18, 2021. TECHNIQUE: Real-time scanning was performed of the fetus for biophysical profile, with image documentation. Color and pulse Doppler interrogation was also performed of the umbilical artery near its insertion into the placenta. Endovaginal scanning: Not performed COMPARISON: None. FINDINGS: General: A single living intrauterine gestation is present. Presentation: Vertex. Placenta: Placental position is fundal , without previa. Amniotic fluid index: 8.3 cm, normal range is 5-24 cm. heart rate: 125 beats per minute. Estimated gestational age from initial scan: 37 weeks 5 days. Biophysical profile: Tone: 2 points. Movement: 2 points. Respiration: 2 points. Largest pocket of fluid: 2 points. IMPRESSION: 8 biophysical profile. We strive to produce accurate, complete, and clear reports of imaging services. To assist us in improving patient care, this report was composed using standard report templates and voice recognition software. Therefore, it may contain abnormal punctuation, insertions and/or omissions. Occasional wrong-word or sound-alike substitutions may occur. Though we review the report and make efforts to correct it, we do recommend that the report be read carefully in proper context to recognize any text inaccuracies. Dictated by: Tiffany Blackmon M.D. on 12/02/2021 at 9:56 Approved by: Tiffany Blackmon M.D. on 12/02/2021 at 10:31
--- NOTE | 2021-12-02 10:05 | P.TNLD_ITS ---
Visit Information Visit Information Date of evaluation: 12/02/21 Primary OB Provider: Jayda Martinez On-call OB Provider: Kayden Gallagher Reason for Evaluation: Yes non-stress test Comments/Additional reasons for admission: IUGR, Oligohydramnios for twice weekly antepartum testing currently 37+0 weeks EGA Vital Signs Vital Signs: WNL [facility] Medical History (Updated 11/30/21 @ 18:12 by Jayda Martinez MD) 36 weeks gestation of Abnormal Pap smear of cervix Anxiety (~2017) Asthma (~2009) Depression (~2017) Latex sensitivity Normal colonoscopy Seasonal allergies Sinus infection Vaginal delivery (~12/03/19) Family History Mother Hypertension UTI (urinary tract infection) Migraines Grandmother Hypertension Grandfather Hypertension Family/Other Breast cancer Father No problems noted. Grandmother Unknown family medical history Grandfather Unknown family medical history Social History marital status: number of children: 1 household members: spouse and children lives independently: Yes caregiver/support person: No pets and animals: No education level: college (AA degree: Business.) occupational status: employed (@ [employer] ) current occupational exposures/hazards: Yes (Bleach/water solution sometimes. ) special andrew needs: No leisure activities: exercise seatbelt use: always do you feel safe at home: Yes Smoking Status: Never smoker second hand exposure: No substance use type: does not use during the past year weight has: remained stable well-balanced diet: rarely or never (Lots of N/V: not eating well lately, too sick. ) daily servings fruits/ve or more times/day (The only thing that will stay down is fruit.) caffeine: No Type(s) of exercise: walking frequency: does not exercise (Feeling poorly lately.) Evaluation Evaluation Baseline heart rate: 130 Variability: Moderate (11-25) monitor accelerations: Present Monitor Decelerations: Absent Category of Tracing: Reactive Status: Category l Comments: Bedside US: FINDINGS:? ? General:? A single living intrauterine gestation is present.? Presentation:? Vertex.? Placenta:? Placental position is fundal , without previa.? ? Amniotic fluid index:? 8.3 cm, normal range is 5-24 cm.? heart rate:? 125 beats per minute.? Estimated gestational age from initial scan:? 37 weeks 5 days.? ? Biophysical profile:? Tone:? 2 points. Movement:? 2 points. Respiration:? 2 points. Largest pocket of fluid:? 2 points.? ? ? IMPRESSION:? 02/20 biophysical profile. Diagnosis, Plan/Disposition Final Diagnosis (1) Small for gestational age fetus affecting management of mother: Status: Acute (2) : Status: Acute Plan/Disposition Plan: Continue twice weekly testing as previously planned. OB Disposition: home
== END 2021-12-02 10:05 | disposition home or self-care (01) ==
LOC: LABOR 09:17 → OB 12-05 16:01
PROVIDERS: PCP Family Medicine; Referring Provider Specialist; Visit Provider Specialist
DX: O36.5930 Maternal care for other known or suspected poor fetal growth, third trimester, not applicable or unspecified (principal); Z3A.37 37 weeks gestation of pregnancy
CPT/HCPCS: 59025; 76819; G0378; G0379

== ENCOUNTER 2021-12-05 11:12 | Outpatient (CLI) | payer OTHER, SELFPAY ==
--- NOTE | 2021-12-05 11:46 | P.TNLD_ITS ---
Visit Information Visit Information Date of evaluation: 12/05/21 Primary OB Provider: Jayda Martinez Reason for Evaluation: Yes non-stress test non-stress test reason: other (SGA) [facility] Medical History (Updated 12/05/21 @ 11:49 by Jayda Martinez MD) 37 weeks gestation of Abnormal Pap smear of cervix Anxiety (~2017) Asthma (~2009) Depression (~2017) Latex sensitivity Normal colonoscopy Seasonal allergies Sinus infection Vaginal delivery (~12/03/19) Family History Mother Hypertension UTI (urinary tract infection) Migraines Grandmother Hypertension Grandfather Hypertension Family/Other Breast cancer Father No problems noted. Grandmother Unknown family medical history Grandfather Unknown family medical history Social History marital status: number of children: 1 household members: spouse and children lives independently: Yes caregiver/support person: No pets and animals: No education level: college (AA degree: Business.) occupational status: employed (@ [employer] ) current occupational exposures/hazards: Yes (Bleach/water solution sometimes. ) special andrew needs: No leisure activities: exercise seatbelt use: always do you feel safe at home: Yes Smoking Status: Never smoker second hand exposure: No substance use type: does not use during the past year weight has: remained stable well-balanced diet: rarely or never (Lots of N/V: not eating well lately, too sick. ) daily servings fruits/ve or more times/day (The only thing that will stay down is fruit.) caffeine: No Type(s) of exercise: walking frequency: does not exercise (Feeling poorly lately.) Evaluation Evaluation Baseline heart rate: 120 Variability: Moderate (11-25) monitor accelerations: Present Monitor Decelerations: Absent Category of Tracing: Reactive Status: Category l Diagnosis, Plan/Disposition Final Diagnosis (1) 37 weeks gestation of : Status: Acute (2) Small for gestational age fetus affecting management of mother: Status: Acute Plan/Disposition Plan: Reactive nonstress test. Continue twice weekly nonstress tests for SGA. OB Disposition: home
== END 2021-12-05 11:55 | disposition home or self-care (01) ==
LOC: OB 16:04
PROVIDERS: PCP Family Medicine; Referring Provider Specialist; Visit Provider Specialist
DX: O36.5930 Maternal care for other known or suspected poor fetal growth, third trimester, not applicable or unspecified (principal); O47.1 False labor at or after 37 completed weeks of gestation; Z3A.37 37 weeks gestation of pregnancy
CPT/HCPCS: 59025; G0378; G0379

== ENCOUNTER 2021-12-06 05:32 | Inpatient (IN) | payer OTHER, SELFPAY ==
[2021-12-06] MEDS: LACTATED RINGERS 1,000 ML 100 ML IV ×2 (08:10→09:49)
--- NOTE | 2021-12-06 09:02 | P.HPOB_ITS ---
OB HPI Date/Time Date of admission: 12/06/21 Date Patient Seen: 12/06/21 Time Patient Seen: 09:02 History of Present Condition Chief complaint: labor : 2 Para: 1 Estimated Date of Delivery: 12/23/21 Estimated Gestational Age (weeks): 37 Narrative: Dara Waddell is a 26 year old female admitted in active labor History of Present care: good care, initiated at week # (8), number of visits (13) and pounds weight gain (25) Dating criteria: LMP confirmed by 1st trimester US Ultrasounds: abnormal US findings Abnormal ultrasound findings: SGA with borderline fluid Obstetrical complications: hyperemesis Medical complications: none Preadmission Labs Blood type: B (+) positive -: Antibody screen: negative, GBS status: negative, HBsAG: negative, HIV: negative and RPR/VDLR: negative -: Chlamydia screen: not detected and Gonorrhea screen: not detected -: Rubella: immune and Varicella: immune HCAB: negative Cell-free DNA: normal male 1 hr GTT: 118 Prior (ies) History: 12/03/19 39.6 14 7 lb 3.5 oz Malevaginallive - full termepiduralIH Dr. Martinez 12mos. other[place] Evaluation Evaluation Baseline heart rate: 120 Variability: Moderate (11-25) monitor accelerations: Present Monitor Decelerations: Absent Contraction Frequency (minutes): 3 Uterine Contraction Intensity: Strong/Firm Category of Tracing: Reactive Status: Category l Dilation (cm): 9 Effacement (%): 90 station: +1 [facility] Medical History (Updated 12/05/21 @ 11:49 by Jayda Martinez MD) 37 weeks gestation of Abnormal Pap smear of cervix Anxiety (~2018) Asthma (~2009) Depression (~2018) Latex sensitivity Normal colonoscopy Seasonal allergies Sinus infection Vaginal delivery (~12/03/19) Family History Mother Hypertension UTI (urinary tract infection) Migraines Grandmother Hypertension Grandfather Hypertension Family/Other Breast cancer Father No problems noted. Grandmother Unknown family medical history Grandfather Unknown family medical history Social History marital status: number of children: 1 household members: spouse and children lives independently: Yes caregiver/support person: No pets and animals: No education level: college (AA degree: Business.) occupational status: employed (@ [employer] ) current occupational exposures/hazards: Yes (Bleach/water solution sometimes. ) special andrew needs: No leisure activities: exercise seatbelt use: always do you feel safe at home: Yes Smoking Status: Never smoker second hand exposure: No substance use type: does not use during the past year weight has: remained stable well-balanced diet: rarely or never (Lots of N/V: not eating well lately, too sick. ) daily servings fruits/ve or more times/day (The only thing that will stay down is fruit.) caffeine: No Type(s) of exercise: walking frequency: does not exercise (Feeling poorly lately.) Meds Home Medications and Allergies Home Medications Medication Instructions Recorded Confirmed Type cetirizine 10 mg tablet (Zyrtec) 10 mg PO BEDTIME 02/13/21 11/03/21 History prenat.vits,ioana,hqc-sskn-maqva 1 tab PO DAILY 05/12/21 11/03/21 History ondansetron 4 mg disintegrating 4 mg PO TID-QID PRN #10 tab 05/16/21 11/03/21 Rx tablet sertraline 25 mg tablet 25 mg PO BEDTIME #30 tab 11/03/21 11/03/21 Rx Allergies Allergy/AdvReac Type Severity Reaction Status Date / Time latex Allergy Mild Unknown, Verified 07/13/21 11:22 per testing according to patient. sulfamethoxazole Allergy Mild Hives Verified 07/13/21 11:22 [From Bactrim] trimethoprim [From Bactrim] Allergy Mild Hives Verified 07/13/21 11:22 Review of Systems Review of Systems Narrative: Patient has had good movement. She had spontaneous rupture membranes at 8:05 a.m. with bloody fluid. No headaches, scotomata, epigastric pain. OB Exam Narrative Exam Narrative: Blood pressure 122/76, pulse 112, temperature 36.1? HEENT exam within normal limits. Lungs are clear to auscultation percussion. Heart is regular rate and rhythm no S3-S4 murmurs. Abdomen is soft, nontender. Abdomen is gravid. Fetus is vertex. Extremities without edema and nontender. Objective Labs Result Diagrams: 12/06/21 08:10 Assessment and Plan Assessment and Plan Assessment and Plan narrative: Patient being followed for SGA fetus. 37 1/2 weeks gestation admitted in active labor. Anticipate vaginal delivery.
[2021-12-06 09:03] LABS: Add Manual Diff / Slide Review NO; Basophils Absolute Auto 0 /uL (0-100); Basophils Percent Auto 0.2 % (0-2); Eosinophils Absolute Auto 100 /uL (0-450); Eosinophils Percent Auto 0.9 % (2-4); Hematocrit 34.1 % (36-46); Hemoglobin 11.2 g/dL (12.0-16.0); Lymphocytes Absolute Auto 2000 /uL (1100-4500); Lymphocytes Percent Auto 15.9 % (25-40); Mean Corpuscular HGB Conc 32.9 % (30-36); Mean Corpuscular Volume 88.2 fL (80-100); Monocytes Absolute Auto 900 /uL (0-900); Monocytes Percent Auto 7.2 % (3-14); Neutrophils Absolute Auto 9500 /uL (1500-7000); Neutrophils Percent Auto 75.8 % (50-75); Platelet Count 204 X10^3/uL (150-400); Red Blood Cell Count 3.86 X10^6/uL (4.0-5.2); Red Cell Distribution Width 13.7 % (11.6-14.8); White Blood Cell Count 12.5 X10^3/uL (4.5-11.0)
[2021-12-06] MEDS: FENT 2MCG/ML BUPIV 0.125% EPI 200 MCG/100 ML PLAST..BAG 10 MCG EPIDURAL (09:30)
[2021-12-06] MEDS: METHYLERGONOVINE 0.2 MG/ML VIAL IM (10:17)
[2021-12-06] MEDS: miSOPROStoL 200 MCG TABLET 800 MCG PR (10:18)
[2021-12-06] MEDS: LACTATED RINGERS 1,000 ML 1000 ML IV (10:27)
[2021-12-06] MEDS: TRANEXAMIC ACID 1,000 MG VIAL 1000 MG (10:31)
--- NOTE | 2021-12-06 10:38 | PM.OBPRVD ---
Events: Other ( SGA) Labor & Delivery Delivery date: 12/06/21 Cervical ripening method: none Induction method: none Delivery monitor: external FHT and external uterine Route of delivery: L&D Laceration Description: None Estimated blood loss (mL): 1,300 Anesthesia Type: Epidural Narrative: The patient arrived in Labor and delivery in active labor. She had spontaneous rupture membranes for bloody fluid. heart tones category 1 throughout labor. Patient received an epidural catheter for pain control. After the epidural was placed she was completely dilated and began pushing. The viable female delivered spontaneously, over an intact perineum. Initially the baby was placed on maternal abdomen but due to baby's color she was taken to the warmer shortly. The placenta delivered spontaneously, intact, with 3 vessels. The patient had a hemorrhage with poor uterine tone and was given IV Pitocin, IM Methergine, IM Hemabate, rectal Cytotec. The tone improved the patient continued to have some bleeding so she was given TXA. a Fernandez catheter was placed. Continued uterine massage. A 2nd IV was started. Anesthesia present to help with elevating the blood pressure. 2 units of blood ordered stat. Baby 1: Infant gender: Female Presentation: vertex Position: Left Occiput Anterior Placenta delivery description: Spontaneous Cord Vessel Description: 3 Vessels score (1 min): 8 score (5 min): 9 Plan for aftercare: Routine care ( monitor for further bleeding)
[2021-12-06 11:03] VITALS: BP 103/70; PULSE 110; RESP 15; TEMP 36.8
[2021-12-06 12:11] VITALS: BP 122/76
[2021-12-06 13:54] VITALS: BP 81/52; PULSE 108; RESP 16; TEMP 36.9
[2021-12-06 14:03] VITALS: TEMP 36.8
[2021-12-06] MEDS: ACETAMINOPHEN 325 MG TABLET 650 MG PO (14:03)
[2021-12-06 15:02] LABS: COVID19 -Nasal RAPID Negative (Negative)
[2021-12-06 16:02] LABS: Add Manual Diff / Slide Review NO; Basophils Absolute Auto 0 /uL (0-100); Basophils Percent Auto 0.1 % (0-2); Eosinophils Absolute Auto 0 /uL (0-450); Eosinophils Percent Auto 0.2 % (2-4); Hematocrit 31.7 % (36-46); Hemoglobin 10.8 g/dL (12.0-16.0); Lymphocytes Absolute Auto 1600 /uL (1100-4500); Lymphocytes Percent Auto 8.9 % (25-40); Mean Corpuscular HGB Conc 34.1 % (30-36); Mean Corpuscular Hemoglobin 29.9 PG (26-34); Mean Corpuscular Volume 87.8 fL (80-100); Monocytes Absolute Auto 1300 /uL (0-900); Monocytes Percent Auto 7.5 % (3-14); Neutrophils Absolute Auto 14600 /uL (1500-7000); Neutrophils Percent Auto 83.3 % (50-75); Platelet Count 162 X10^3/uL (150-400); Red Blood Cell Count 3.61 X10^6/uL (4.0-5.2); Red Cell Distribution Width 13.7 % (11.6-14.8); White Blood Cell Count 17.5 X10^3/uL (4.5-11.0)
[2021-12-06] MEDS: HYDROCODONE/ACET 5/325 TABLET 1 TAB PO (21:09)
[2021-12-07] MEDS: HYDROCODONE/ACET 5/325 TABLET 1 TAB PO (02:09)
[2021-12-07 06:10] LABS: Add Manual Diff / Slide Review NO; Basophils Absolute Auto 0 /uL (0-100); Basophils Percent Auto 0.4 % (0-2); Eosinophils Absolute Auto 200 /uL (0-450); Eosinophils Percent Auto 1.7 % (2-4); Hematocrit 29.7 % (36-46); Hemoglobin 9.9 g/dL (12.0-16.0); Lymphocytes Absolute Auto 2500 /uL (1100-4500); Lymphocytes Percent Auto 21.6 % (25-40); Mean Corpuscular HGB Conc 33.3 % (30-36); Mean Corpuscular Hemoglobin 29.5 PG (26-34); Mean Corpuscular Volume 88.6 fL (80-100); Monocytes Absolute Auto 1100 /uL (0-900); Monocytes Percent Auto 9.3 % (3-14); Neutrophils Absolute Auto 7800 /uL (1500-7000); Platelet Count 147 X10^3/uL (150-400); Red Blood Cell Count 3.36 X10^6/uL (4.0-5.2); Red Cell Distribution Width 13.9 % (11.6-14.8); White Blood Cell Count 11.6 X10^3/uL (4.5-11.0)
[2021-12-07] MEDS: FERROUS SULFATE 325 MG TABLET PO (08:30)
[2021-12-07] MEDS: IBUPROFEN 600 MG TABLET PO ×2 (08:30→20:32)
[2021-12-07] MEDS: OXYCODONE IR 5 MG TABLET PO (08:31)
--- NOTE | 2021-12-07 10:25 | P.PNOB_ITS ---
Subjective - OB Subjective Patient comments: other (significant back, tailbone, hip pain) baby status: doing well and nursing well [place] feeding status: exclusively breast feeding Date Patient Seen: 12/07/21 Time Patient Seen: 10:25 Interval history: day 1 vaginal delivery, hemorrhage with pain , although patient with almost incapacitating pain prior to delivery. Will change to oxycodone for pain in addition to Motrin. Exam Vital Signs (past 8 hours): BP 87/59, P84, T 97.7 Narrative Exam Narrative: Abdomen is soft, NT. Uterus is firm, U-2, NT. Light lochia. Extremities without edema and nontender. Objective Labs Result Diagrams: 12/07/21 05:40 Labs: Laboratory Results - last 24 hr 12/06/21 12/06/21 12/06/21 08:10 14:30 15:55 WBC 17.5 H RBC 3.61 L Hgb 10.8 L Hct 31.7 L MCV 87.8 MCH 29.9 MCHC 34.1 RDW 13.7 Plt Count 162 Neut % (Auto) 83.3 H Lymph % (Auto) 8.9 L [place] % (Auto) 7.5 Eos % (Auto) 0.2 L Baso % (Auto) 0.1 Neut # (Auto) 74092 H Lymph # (Auto) 1600 [place] # (Auto) 1300 H Eos # (Auto) 0 Baso # (Auto) 0 SARS-CoV-2 (PCR) Negative Blood Type B Positive Antibody Screen Negative Crossmatch See Detail 12/07/21 05:40 WBC 11.6 H RBC 3.36 L Hgb 9.9 L Hct 29.7 L MCV 88.6 MCH 29.5 MCHC 33.3 RDW 13.9 Plt Count 147 L Neut % (Auto) 67.0 Lymph % (Auto) 21.6 L [place] % (Auto) 9.3 Eos % (Auto) 1.7 L Baso % (Auto) 0.4 Neut # (Auto) 7800 H Lymph # (Auto) 2500 [place] # (Auto) 1100 H Eos # (Auto) 200 Baso # (Auto) 0 SARS-CoV-2 (PCR) Blood Type Antibody Screen Crossmatch Assessment & Plan Assessment and Plan (1) Vaginal delivery: Status: Acute (2) hemorrhage: Status: Acute (3) Low back pain with sciatica: Status: Acute (4) Pelvic pain affecting in third trimester, antepartum: Status: Acute Plan day: 1 plan OB: routine care Time Spent With Patient Time: Total time spent is greater than 50% in coordination of care (as documented) at patient's floor/unit and/or counseling patient: Time with patient: less than 15 minutes
[2021-12-07] MEDS: DOCUSATE 100 MG CAPSULE PO (20:32)
[2021-12-08] MEDS: FERROUS SULFATE 325 MG TABLET PO (08:45)
[2021-12-08] MEDS: DOCUSATE 100 MG CAPSULE PO (08:45)
--- NOTE | 2021-12-08 11:02 | PM.OBDS.1 ---
Discharge Providers Provider Date of admission: 12/06/21 05:32 Discharge Date: 12/08/21 Primary care physician: Blayne Larios MD Consults: 12/06/21 07:56 Consult to Anesthesiology Urgent Comment: Consulting Provider: Anesthesiologist Reason for consultation: Epidural Has provider been notified: No 12/07/21 10:34 Consult to [employer] Routine Comment: Discharge provider: Jayda Martinez MD Summary Hospital Course Date Patient Seen: 12/08/21 Time Patient Seen: 10:00 Diagnoses: Spontaneous vaginal delivery with hemorrhage Hospital Course: Patient arrived on Labor and delivery in active labor. She received an epidural catheter for pain control. She had a spontaneous vaginal delivery of a viable female infant. She had significant hemorrhage that responded to medications. She received 2 units of packed red blood cells. She is breast-feeding and now supplementing. She initially had significant pain but that has resolved. She is urinating and ambulating well. No headaches, scotomata, epigastric pain. Peripartum Data Infant Delivery Method: Natural Vaginal Laceration Description: None Procedures: Epidural catheter, spontaneous vaginal delivery complications: transfusion and uterine atony 1: Gender: Female Disposition of : home Discharge Diagnosis (1) Vaginal delivery: Status: Acute (2) hemorrhage: Status: Acute (3) Low back pain with sciatica: Status: Acute (4) Pelvic pain affecting in third trimester, antepartum: Status: Acute Status at Discharge Cognitive/behavioral status at discharge: oriented Functional status at discharge: independent ambulation Overall status at discharge: patient is progressing back to baseline Time Spent with Patient Time attestation: Total time spent providing and/or coordinating discharge services: Time spent: Less than 30 minutes Objective Labs Result Diagrams: 12/07/21 05:40 Exam Vital Signs (past 8 hours): Blood pressure 89/62, pulse 79, temperature 97.9? Narrative Exam Narrative: Abdomen is soft, nontender. Uterus is firm, U-2, nontender. Mild lochia. Extremities without edema and nontender. Blood type B positive, she is rubella immune. She received Tdap in the 3rd trimester. Discharge Plan Discharge Plan Patient Disposition: Home Discharge orders & Medications Prescriptions: New ferrous sulfate 325 mg (65 mg iron) Tablet 325 mg PO DAILY Qty: 30 0RF ibuprofen 600 mg Tablet 600 mg PO Q6HR PRN (Reason: Pain, Mild (1-3)) Qty: 30 0RF Continued sertraline 25 mg tablet 25 mg PO BEDTIME Qty: 30 6RF cetirizine [Zyrtec] 10 mg Tablet 10 mg PO BEDTIME 0RF Follow up/Referrals: Blayne Larios MD [Primary Care Provider] - Jayda Martinez MD [Physician] - 1 Month Diet/Activity/Treatments Diet: Regular Activity: nothing in vagina for 6 weeks Skin/Wound/Dressing Care Report to your healthcare provider any signs of infection, such as:: chills, fever and increased pain Visit Report/Discharge Packet Stand Alone Forms: Discharge: Care Discharge Data Primary Care Provider: Blayne Larios
[2021-12-08 12:05] VITALS: BP 81/52; PULSE 108; RESP 16; TEMP 36.8
[2021-12-08] MEDS: LANOLIN OINT 7 GM 1 APPLIC TOP (12:46)
[2021-12-08] MEDS: HYDROCODONE/ACET 5/325 TABLET 1 TAB PO (12:47)
== END 2021-12-08 13:20 | disposition home or self-care (01) | DRG 806 ==
PROVIDERS: Obstetrics & Gynecology; Admitting Provider Specialist; PCP Family Medicine; Referring Provider Specialist; Visit Provider Specialist
DX: O42.02 Full-term premature rupture of membranes, onset of labor within 24 hours of rupture (principal); O90.81 Anemia of the puerperium; D62 Acute posthemorrhagic anemia; Z37.0 Single live birth; Z3A.37 37 weeks gestation of pregnancy; Z20.822 Contact with and (suspected) exposure to COVID-19
CPT/HCPCS: 01967; 36415; 36430; 59050; 59400; 85025; 86850; 86900; 86901; 87635; C9803; P9016; G0379; J2210; S0191

== ENCOUNTER → 2022-06-21 14:56 | Outpatient (CLI) | payer OTHER, SELFPAY ==
[2022-06-21 18:42] LABS: COVID-19 CEPHEID 4-PLEX PCR Negative (Negative); Influenza A - CEPHEID Flu A POSITIVE (NEGATIVE); Influenza B - CEPHEID Flu B NEGATIVE (NEGATIVE); Respiratory Syncytial Virus Negative (Negative)
== END ==
PROVIDERS: PCP Family Medicine; Visit Provider Physician Assistant Medical
DX: R50.9 Fever, unspecified (principal)
CPT/HCPCS: 0241U

== ENCOUNTER → 2022-09-14 15:48 | Outpatient (CLI) | payer OTHER, SELFPAY ==
[2022-09-16 08:36] LABS: Hepatitis BE Antigen Negative (Negative)
[2022-09-18 08:36] LABS: Hepatitis Be Antibody Negative (Negative)
== END ==
PROVIDERS: PCP Family Medicine; Referring Provider Family Medicine; Visit Provider Family Medicine
DX: Z71.85 Encounter for immunization safety counseling (principal)
CPT/HCPCS: 36415; 86707; 87350

== ENCOUNTER → 2023-05-31 11:56 | Outpatient (CLI) | payer OTHER, SELFPAY ==
--- NOTE | 2023-05-31 11:59 | DI.RAD.S_ITS ---
PROCEDURE: XR KNEE LT 3V INDICATIONS: acute on chronic pain TECHNIQUE: 3 views of the knee were acquired. COMPARISON: None. FINDINGS: Bones: No fractures or dislocations. No suspicious bony lesions. Soft tissues: No joint effusion. No suspicious soft tissue calcifications. IMPRESSION: No acute bony abnormality or significant effusion. Dictated by: Soha Mccollum MD, PhD on 05/31/2023 at 13:30 Approved by: Soha Mccollum MD, PhD on 05/31/2023 at 13:30
--- NOTE | 2023-05-31 11:59 | DI.RAD.S_ITS ---
PROCEDURE: XR ELBOW RT MIN 3V INDICATIONS: pain @ elbow, no trauma, lifts babies frequently TECHNIQUE: 3 views of the elbow were acquired. COMPARISON: None. FINDINGS: Bones: No fractures or dislocations. No suspicious bony lesions. Soft tissues: No elbow joint effusion. No suspicious soft tissue calcifications. IMPRESSION: No acute bony abnormality or significant joint effusion. Dictated by: Soha Mccollum MD, PhD on 05/31/2023 at 13:30 Approved by: Soha Mccollum MD, PhD on 05/31/2023 at 13:31
--- NOTE | 2023-05-31 11:59 | DI.RAD.S_ITS ---
PROCEDURE: XR KNEE RT 3V INDICATIONS: acute on chronic pain R>L TECHNIQUE: 3 views of the knee were acquired. COMPARISON: None. FINDINGS: Bones: No fractures or dislocations. No suspicious bony lesions. Soft tissues: No joint effusion. No suspicious soft tissue calcifications. IMPRESSION: No acute bony abnormality or significant effusion. Dictated by: Soha Mccollum MD, PhD on 05/31/2023 at 13:30 Approved by: Soha Mccollum MD, PhD on 05/31/2023 at 13:30
== END ==
PROVIDERS: PCP Family Medicine; Referring Provider Physician Assistant; Visit Provider Physician Assistant
DX: M22.2X1 Patellofemoral disorders, right knee (principal); M25.561 Pain in right knee; M22.2X2 Patellofemoral disorders, left knee; M25.562 Pain in left knee; M77.10 Lateral epicondylitis, unspecified elbow; G89.29 Other chronic pain
CPT/HCPCS: 73080; 73562

== ENCOUNTER → 2023-08-11 11:15 | Outpatient (CLI) | payer OTHER, SELFPAY ==
[2023-08-11 12:00] LABS: Appearance Urine UA SL CLOUDY; Bilirubin Urine UA NEGATIVE (NEGATIVE); Color Urine UA YELLOW; Glucose Urine UA NEGATIVE (Negative); Ketones Urine UA NEGATIVE (NEGATIVE); Leukocyte Esterase Urine UA TRACE (NEGATIVE); Nitrite Urine UA NEGATIVE (Negative); Occult Blood Urine UA NEGATIVE (Negative); Protein Urine UA NEGATIVE (Negative); Specific Gravity Urine UA >=1.030 (1.000-1.035)
[2023-08-11 12:15] LABS: Urine Volume 10mL (spun); pH Urine UA 5.5 (4.5-8.0)
[2023-08-11 12:16] LABS: Bacteria Urine Many (>30); RBC Urine None Seen (0-5/HPF); Squamous Epithelial Cell Urine >30 /HPF (0-5/HPF); WBC Urine 5-10/HPF (0-5/HPF)
[2023-08-11 12:19] LABS: Add Manual Diff / Slide Review NO; Basophils Absolute Auto 0 /uL (0-100); Basophils Percent Auto 0.7 % (0-2); Eosinophils Absolute Auto 100 /uL (0-450); Eosinophils Percent Auto 1.2 % (2-4); Hematocrit 36.8 % (36-46); Hemoglobin 12.7 g/dL (12.0-16.0); Lymphocytes Absolute Auto 1400 /uL (1100-4500); Lymphocytes Percent Auto 29.5 % (25-40); Mean Corpuscular HGB Conc 34.4 % (30-36); Mean Corpuscular Hemoglobin 31.1 PG (26-34); Mean Corpuscular Volume 90.5 fL (80-100); Monocytes Absolute Auto 300 /uL (0-900); Monocytes Percent Auto 5.9 % (3-14); Neutrophils Absolute Auto 3000 /uL (1500-7000); Neutrophils Percent Auto 62.7 % (50-75); Platelet Count 185 X10^3/uL (150-400); Red Blood Cell Count 4.07 X10^6/uL (4.0-5.2); Red Cell Distribution Width 12.7 % (11.6-14.8); White Blood Cell Count 4.8 X10^3/uL (4.5-11.0)
[2023-08-11 13:31] LABS: Urine N gonorrhoeae NOT DETECTED
[2023-08-11 14:19] LABS: Urine Chlamydia NOT DETECTED
[2023-08-12 10:47] LABS: Varicella IgG Antibody 616 index (Immune >165)
[2023-08-13 16:43] LABS: Hepatitis B Surface Antigen NEGATIVE s/c (NEGATIVE); Rubella Antibody IgG 77.9 IU/mL (>15)
[2023-08-13 16:59] LABS: HIV 1 & 2 Ab/Ag 4th Gen Combo NEGATIVE (NEGATIVE); Hep C Virus Ab w/Reflex Quant NEGATIVE s/c (NEGATIVE)
[2023-08-14 05:13] LABS: RPR Screen Non Reactive (Non Reactive)
[2023-08-14 23:35] LABS: Calc Gestational Age Ultrasound (.); Estriol, Free 0.25 ng/mL (.); Inhibin A, Dimeric 510.71 pg/mL (.); Inhibin A, MoM See interpretation. (.); Maternal Ethnicity Other (.); Maternal Weight 126 lbs (.); Number of Fetuses No (.); OSBR Risk 1 IN 10000 (.); Results Report (.); Test Results See interpretation. (.); hCG, MoM See interpretation. (.); hCG, Serum 208875 mIU/mL (.)
[2023-08-15 07:21] LABS: AFP PDF SCANNED
== END ==
LOC: LAB 11:16
PROVIDERS: Obstetrics & Gynecology; PCP Family Medicine; Referring Provider Family Medicine; Visit Provider Family Medicine
DX: Z34.01 Encounter for supervision of normal first pregnancy, first trimester (principal)
CPT/HCPCS: 36415; 80055; 81003; 81015; 82105; 82677; 84702; 86336; 86787; 86803; 86850; 86870; 86900; 86901; 87086; 87389; 87491; 87591

== ENCOUNTER → 2023-08-23 09:39 | Outpatient (CLI) | payer OTHER, SELFPAY | PROVIDERS: PCP Family Medicine; Referring Provider Obstetrics & Gynecology; Visit Provider Obstetrics & Gynecology | DX: Z34.81 Encounter for supervision of other normal pregnancy, first trimester (principal); R76.8 Other specified abnormal immunological findings in serum | CPT/HCPCS: 36415; 86886 ==

== ENCOUNTER → 2023-09-14 11:20 | Outpatient (CLI) | payer OTHER, SELFPAY ==
[2023-09-24 08:15] LABS: AFP, Serum 63.9 ng/mL (.); Calc Gestational Age EDD (.); Estriol, Free 1.47 ng/mL (.); Inhibin A, Dimeric 387.48 pg/mL (.); Inhibin A, MoM 2.31 (.); Maternal Ethnicity Other (.); Maternal Weight 128 lbs (.); Number of Fetuses No (.); OSBR Risk 1 IN 2661 (.); Results Report (.); Test Results *Screen Negative* (.); hCG, MoM 1.94 (.); hCG, Serum 76886 mIU/mL (.)
== END ==
PROVIDERS: PCP Family Medicine; Referring Provider Family Medicine; Visit Provider Family Medicine
DX: O09.92 Supervision of high risk pregnancy, unspecified, second trimester (principal)
CPT/HCPCS: 36415; 82105; 82677; 84702; 86336